=== PATIENT | female | born 2005 | race Hispanic/Latino ===

== ENCOUNTER 2023-01-24 05:05 | Inpatient (IN) | payer OTHER, SELFPAY ==
[2023-01-24] VITALS (143 sets, daily range): BP systolic 62–150; BP diastolic 27–118; PULSE 59–218; RESP 18; TEMP 36.4–37; O2SAT 91–100
--- NOTE | 2023-01-24 05:28 | LDADM ---
This patient, Elsie Cordoba, was admitted to Labor/Delivery/Recovery 103 on 01/24/23 at 05:05. Plans for labor, pain management and were discussed with patient. Patient/family oriented to hospital policies and general routines including ID bracelet, bed and alarms, visiting hours, pain management, procedures, bathroom and other care routines, personal items, smoking policy, room service/diet and guest tray routines, security routines, and visiting hours. Patient/Family are encouraged to report perceived risks to care and to ask questions if they do not understand what they are told or what they should do. See OBIX for further documentation.
[2023-01-24] MEDS: LACTATED RINGERS 500 ML 999 ML IV CONT (05:37)
[2023-01-24 05:44] LABS: Basophils Percent Auto 0.3 % (0.2-1.2); Eosinophils Absolute Auto 0.2 K/mm3 (0-0.3); Eosinophils Percent Auto 1.9 % (0-4.4); Hemoglobin 8.5 g/dL (12.0-15.0); Immature Granulocyte Absolute 0.17 K/mm3 (0.00-0.031); Immature Granulocyte Percent A 1.7 % (0-0.5); Lymphocytes Absolute Auto 2.82 K/mm3 (0.9-3.2); Lymphocytes Percent Auto 27.9 % (18.3-44.2); Mean Corpuscular HGB Conc 28.3 g/dl (32-36); Mean Corpuscular Hemoglobin 20.7 pg (26-34); Mean Platelet Volume 10.5 fl (7.4-10.4); Monocytes Absolute Auto 0.5 K/mm3 (0.1-0.6); Monocytes Percent Auto 4.4 % (2.6-8.5); Neutrophils Absolute Auto 6.5 K/mm3 (1.3-6.7); Neutrophils Percent Auto 63.8 % (45.5-73.1); Nucleated Red Blood Cells Absolute Auto 0.1 K/mm3 (0.0-0.012); Nucleated Red Blood Cells Perc 0.7 % (0.0-0.2); Platelet Count Result 390 k/mm3 (150-375); Red Blood Count 4.11 M/mm3 (4.2-5.4); Red Cell Distribution Width 21.5 % (11.5-14.5); White Blood Count 10.1 K/mm3 (4.5-10.0)
[2023-01-24] MEDS: OXYTOCIN 30 UNITS/NS 500 ML 30 UNITS/500 ML BAG IV CONT (06:18)
[2023-01-24 06:25] LABS: Hypochromasia 3+ (NORMAL); Platelet Estimate Adequate (Adequate); Polychromasia 1+ (NORMAL)
[2023-01-24 06:26] LABS: Anisocytosis 2+ (NORMAL); Microcytosis 1+ (NORMAL); Schistocytes None Seen (NORMAL)
[2023-01-24 06:32] LABS: HIV 1/2 Ab P24 Ag Result Negative (Negative)
--- NOTE | 2023-01-24 07:10 | WPDANESEPP ---
Anes - Eval Pre Procedure Procedure: labor epidural Date/Time: 01/24/23 07:10 Surgeon: scar Preop Diagnosis: pain during labor Pre Op Diagnosis: IOL Patient Data Age: 17 Gender: F Height: Weight: Last Vital Signs Temp 36.4 C 01/24/23 06:15 Pulse 93 01/24/23 06:45 BP 109/75 01/24/23 06:45 O2 Del Method Room Air 01/24/23 05:27 Allergies Allergy/AdvReac Type Severity Reaction Status Date / Time No Known Allergies Allergy Verified 01/09/23 15:56 Home Medications Medication Instructions Recorded Confirmed Type prenat.vits,gary,[id number] 1 tablet PO DAILY 01/09/23 01/09/23 History Laboratory Tests 01/24/23 01/24/23 01/24/23 05:16 05:16 05:16 WBC 10.1 K/mm3 H K/mm3 (4.5-10.0) RBC 4.11 M/mm3 L M/mm3 (4.2-5.4) Hgb 8.5 g/dL L g/dL (12.0-15.0) Hct 30.0 % L % (37.0-47.0) MCV 73.0 fl L fl (80-100) MCH 20.7 pg L pg (26-34) MCHC 28.3 g/dl L g/dl (32-36) RDW 21.5 % H % (11.5-14.5) Plt Count 390 k/mm3 H k/mm3 (150-375) MPV 10.5 fl H fl (7.4-10.4) Immature Gran % (Auto) 1.7 % H % (0-0.5) Neut % (Auto) 63.8 % % (45.5-73.1) Lymph % (Auto) 27.9 % % (18.3-44.2) [place] % (Auto) 4.4 % % (2.6-8.5) Eos % (Auto) 1.9 % % (0-4.4) Baso % (Auto) 0.3 % % (0.2-1.2) Lymph # (Auto) 2.82 K/mm3 K/mm3 (0.9-3.2) [place] # (Auto) 0.5 K/mm3 K/mm3 (0.1-0.6) Eos # (Auto) 0.2 K/mm3 K/mm3 (0-0.3) Baso # (Auto) 0.0 K/mm3 K/mm3 (0.0-0.1) Abs Immat Gran (auto) 0.17 K/mm3 H K/mm3 (0.00-0.031) Absolute Neuts (auto) 6.5 K/mm3 K/mm3 (1.3-6.7) Absolute Nucleated RBC 0.1 K/mm3 H K/mm3 (0.0-0.012) Nucleated RBC % 0.7 % H % (0.0-0.2) Platelet Estimate Adequate (Adequate) Polychromasia 1+ (NORMAL) Hypochromasia 3+ (NORMAL) Anisocytosis 2+ (NORMAL) Microcytosis 1+ (NORMAL) Schistocytes None seen (NORMAL) RPR Pending HIV 1&2 Ab/P24 Ag 4thGn Negative (Negative) Patient hx anesthesia problems: none Family hx anesthesia problems: none Results Review: All pre-operative results and documents have been reviewed as part of the pre-operative evaluation. [facility] Past Medical History Medical History (Updated 01/24/23 @ 07:11 by [employer] [place] CRNA) IUP (intrauterine ), incidental Family History Family History (Updated 01/09/23 @ 15:58 by Luz Swann RN) Mother Diabetes mellitus Grandparent Diabetes mellitus Social History Social History Smoking status: Never smoker Substance use: never Lack of Transportation: No Lack of Food: Never True Current Housing: I Have Housing Concerned About Future Housing: No Difficulty Paying Gas/Electric Bills: No Difficulty Paying for Meds: No Currently Unemployed: No Education: High School Diploma/GED Difficulty w/ Childcare or Family Care: No Spiritual care concerns: No Exam Day of Procedure 01/24/23 07:10
--- NOTE | 2023-01-24 07:29 | PM.IMHP ---
H&P: HPI History of Present Illness Date/Time: 01/24/23 07:29 Chief Complaint: induction of labor Narrative: Nydia is a 17yo at 39.0 for elective IOL. is complicated by short interval (her daughter was born 01/14/22), anemia, COVID during . She is gbs neg. Review of Systems Review of Systems: All systems reviewed & are unremarkable except as noted in HPI and below PMFSH Past Medical History Medical History (Updated 01/24/23 @ 07:31 by Fern Pierce MD) IUP (intrauterine ), incidental Family History Family History (Updated 01/09/23 @ 15:58 by Luz Swann RN) Mother Diabetes mellitus Grandparent Diabetes mellitus Social History Social History Smoking status: Never smoker Substance use: never Lack of Transportation: No Lack of Food: Never True Current Housing: I Have Housing Concerned About Future Housing: No Difficulty Paying Gas/Electric Bills: No Difficulty Paying for Meds: No Currently Unemployed: No Education: High School Diploma/GED Difficulty w/ Childcare or Family Care: No Spiritual care concerns: No Meds Home Medications and Allergies Home Medications Medication Instructions Recorded Confirmed Type prenat.vits,gary,[id number] 1 tablet PO DAILY 01/09/23 01/09/23 History Allergies Allergy/AdvReac Type Severity Reaction Status Date / Time No Known Allergies Allergy Verified 01/09/23 15:56 Vital Signs Vital Signs - 24 hr 01/24/23 05:26 01/24/23 05:30 01/24/23 05:34 Temperature Pulse Rate 140 H 113 H 93 Blood Pressure 88/45 L 86/37 L 93/69 L Oxygen Delivery 01/24/23 05:45 01/24/23 06:00 01/24/23 06:15 Temperature 97.6 F Pulse Rate 91 95 93 Blood Pressure 108/68 108/72 114/64 Oxygen Delivery 01/24/23 06:30 01/24/23 06:45 01/24/23 05:27 Temperature Pulse Rate 86 93 Blood Pressure 118/68 109/75 Oxygen Delivery Room Air Exam Const: General: no acute distress Resp: Effort & Inspection: normal respiratory effort Auscultation: clear to auscultation bilaterally Cardio: Rate: regular rate Rhythm: regular rhythm GI: GI Palp: Yes Soft to palpation Extrem: General: normal to inspection H&P: Results Labs Labs: Short CBC 01/24/23 Range/Units 05:16 WBC 10.1 H (4.5-10.0) K/mm3 Hgb 8.5 L (12.0-15.0) g/dL Hct 30.0 L (37.0-47.0) % Plt Count 390 H (150-375) k/mm3 Assessment and Plan Assessment and plan (1) Elective induction of labor planned: Status: Acute (2) Anemia complicating : Code(s): O99.019 - Anemia complicating , unspecified trimester Status: Acute Assessment and Plan: IOL pitocin GBS neg AROM clear 4.5/50/-3 FHT category 1 anticipate hgb 8.5. plan IV iron pp if transfusion not needed.
[2023-01-24] MEDS: LACTATED RINGERS 1,000 ML 999 ML IV CONT ×2 (07:50→10:02)
[2023-01-24] MEDS: fentaNYL CITRATE INJ (*CRX) 100 MCG/2 ML VIAL IV PUSH (08:34)
[2023-01-24 13:50] LABS: Rapid Plasma Reagin Non-Reactive (NonReactive)
--- NOTE | 2023-01-24 15:14 | PM.OBPRVD ---
OB - Delivery Note Procedure Delivery date: 01/24/23 Procedure: Events: Elective Induction of Labor Induction method: AROM and Per Pitocin Protocol Delivery monitor: External FHT and Internal Uterine Route of delivery: Laceration Description: None Quantitative Blood Loss (ml): 150 Anesthesia type: Epidural Disposition: Floor Narrative: With adequate expulsive efforts by the mother, the baby's head was delivered OA. The baby's anterior shoulder was delivered under the pubic symphysis without difficulty. The posterior shoulder and the rest of the baby delivered without difficulty. The was placed on the mothers chest and suctioned and stimulated. The cord was clamped and cut after 30 seconds. Mother and baby both stable. Baby Date of : 01/24/23 Time of : 14:55 Weeks of gestation at delivery: 39 gender: Male Weight (pounds): 8 Weight (ounces): 5 presentation: vertex Placenta delivery description: Spontaneous Cord Vessel Description: 3 Vessels and Delayed Cord Clamping score one minute: 8 score five minutes: 9
[2023-01-24] MEDS: OXYTOCIN 30 UNITS/NS 500 ML 30 UNITS/500 ML BAG 125 UNITS IV CONT (15:45)
--- NOTE | 2023-01-24 19:07 | OBPPTRN ---
1725 Patient transferred to post room #291 via W/C. Support person present. Oriented to unit, room, information board, rooming in, admission packet and security measures. Patient verbalizes understanding.
[2023-01-25 00:10] VITALS: BP 118/60; PULSE 95; RESP 16; TEMP 37.3; O2SAT 98
[2023-01-25 03:52] VITALS: BP 113/69; PULSE 83; RESP 16; TEMP 37.2; O2SAT 100
[2023-01-25] MEDS: IBUPROFEN 600 MG TABLET PO ×2 (03:59→17:22)
[2023-01-25 04:29] LABS: Hematocrit 26.4 % (37.0-47.0); Hemoglobin 7.5 g/dL (12.0-15.0)
[2023-01-25] MEDS: ACETAMINOPHEN 325 MG TABLET 650 MG PO (08:25)
[2023-01-25] MEDS: MULTIVIT/MIN/PREN/FOL AC/IRON TABLET 1 TAB PO (08:26)
[2023-01-25] MEDS: POLYSACCHARIDE IRON COMPLEX 150 MG CAPSULE PO ×2 (08:26→17:22)
[2023-01-25] MEDS: DOCUSATE SODIUM 100 MG CAPSULE PO ×2 (08:26→17:22)
[2023-01-25] MEDS: LANOLIN (LANSINOH) 7.5 GM CREAM 1 APPLIC TOPICAL (08:28)
[2023-01-25 08:30] VITALS: BP 116/68; PULSE 90; RESP 16; TEMP 36.6; O2SAT 100
--- NOTE | 2023-01-25 08:53 | PM.OBPNVD ---
OB - PN: Subj Subjective Date/time seen: 01/25/23 08:53 Patient comments: no complaints baby status: doing well [place] feeding status: breast and bottle feeding Narrative: Baby not eating well either breast nor bottle. OB - PN: Obj Data Labs 01/25/23 04:07 Labs: Laboratory Results - last 24 hr 01/24/23 01/25/23 05:16 04:07 Hgb 7.5 L Hct 26.4 L RPR Non-reactive OB - PN A/P Assessment and Plan (1) Anemia complicating : Code(s): O99.019 - Anemia complicating , unspecified trimester Status: Acute (2) , delivered: Code(s): O80 - Encounter for full-term uncomplicated delivery Status: Acute Plan day: 1 Plan: routine care Comments: Pt asked about going home, but if baby not eating well, I recommended they stay until tomorrow. IV iron today DC home tomorrow. Time Spent With Patient Time: Total time spent is greater than 50% in coordination of care (as documented) at patient's floor/unit and/or counseling patient: Time with patient: less than 15 minutes Exam Narrative: NAD abdomen soft, nontender, fundus firm below the umbilicus Extremities nontender, 1+ edema
[2023-01-25 13:15] VITALS: BP 101/53; PULSE 84; RESP 18; TEMP 36.7; O2SAT 98
--- NOTE | 2023-01-25 13:55 | WPDANLDPN2 ---
Anes-Prog Note L&D Date/Time: 01/25/23 13:55 Comfortable throughout: labor and delivery (pt states felt intense rectal pressure at delivery. denied sharp pain.) Neuraxial method: epidural Epidural/Spinal procedure site: clean & non-tender Neuro status: Neuro function grossly intact. Cardiovascular status: normal Respiratory status: normal Airway patency: baseline Mental status: baseline Post-Op hydration status: normal Vital Signs: Last Vital Signs Temp 97.9 F 01/25/23 08:30 Pulse 90 01/25/23 08:30 Resp 16 01/25/23 08:30 BP 116/68 01/25/23 08:30 Pulse Ox 100 01/25/23 08:30 O2 Del Method Room Air 01/25/23 09:30 Pain score (VAS): 0 I/O: Intake & Output 01/24/23 01/25/23 01/25/23 23:59 07:59 15:59 Intake Total 240 480 Balance 240 480 Post-procedural complaints: none Patient feedback: Patient satisfied with anesthetic care.
[2023-01-25 20:57] VITALS: BP 106/64; PULSE 103; RESP 18; TEMP 36.9; O2SAT 99
[2023-01-26] MEDS: POLYSACCHARIDE IRON COMPLEX 150 MG CAPSULE PO (08:01)
[2023-01-26] MEDS: MULTIVIT/MIN/PREN/FOL AC/IRON TABLET 1 TAB PO (08:01)
[2023-01-26] MEDS: DOCUSATE SODIUM 100 MG CAPSULE PO (08:02)
[2023-01-26] MEDS: ACETAMINOPHEN 325 MG TABLET 650 MG PO (08:03)
[2023-01-26 08:07] VITALS: BP 110/57; PULSE 76; RESP 16; TEMP 36.6; O2SAT 100
--- NOTE | 2023-01-26 10:05 | PM.OBPNVD ---
OB - PN: Subj Subjective Date/time seen: 01/26/23 10:05 Patient comments: no complaints and pain well controlled baby status: doing well and bottle feeding well OB - PN: Obj Data Labs 01/25/23 04:07 OB - PN A/P Plan day: 2 Plan: routine care and discharge home Time Spent With Patient Time: Total time spent is greater than 50% in coordination of care (as documented) at patient's floor/unit and/or counseling patient: Time with patient: less than 15 minutes Exam Narrative: NAD abdomen soft, nontender, fundus firm below the umbilicus Extremities nontender, 1+ edema
--- NOTE | 2023-01-26 10:06 | PM.OBDSVD ---
DS: Admitting Diagnosis Discharge Date 01/26/23 Admitting Diagnosis term IUP DS: Discharge Diagnosis Discharge Diagnosis (1) , delivered: Code(s): O80 - Encounter for full-term uncomplicated delivery Status: Acute (2) Anemia complicating : Code(s): O99.019 - Anemia complicating , unspecified trimester Status: Acute OB - DS: Summary Hospital Course Hospital Course: Nydia was admitted for elective induction of labor. She proceeded to have an uncomplicated vaginal delivery and course. SHe did receive IV iron for anemia. She was DCed home on PPD 2. OB Procedures : Ultrasound OB Procedures Intrapartum: Spontaneous Vag Delivery OB Procedures: : None Peripartum Data Infant Delivery Method: Natural Vaginal complications: none Status at Discharge Functional status at discharge: independent ambulation Time Spent with Patient Time attestation: Total time spent providing and/or coordinating discharge services: Exam Narrative: NAD abdomen soft, appropriately tender Ext non tender, 1+ edema Discharge Plan Discharge Attending physician on discharge: Fern Pierce Discharging Clinician: Fern Pierce Anticipated Discharge Date/Time: 01/26/23 11:00 Patient Disposition: Home, Self-Care Activity: pelvic rest Diet: regular Discharge Instructions: Education: Mom and Baby Guide Given to: Mother Follow-Up: Call your delivering provider's office for an appointment to be seen in: 4 Weeks Mom and baby should come to the [facility] for the follow-up appointment. Appointment Date/Time: January 27, 2023 at 3:30 pm What to expect at your follow-up visit: Blood Pressure Check Physical Assessment Call [phone] if you are unable to keep your appointment time. BREAST CARE: * Wear a snug supportive bra. * For engorgement discomfort: Breast Feeding: * Apply warm moist washcloths * Express milk as needed to relieve engorgement * Wear loose clothing Bottle Feeding: * May apply ice packs * For sore nipples: * Identify correct latch-on * Apply warm moist washcloths before and after nursing * Air dry nipples after nursing * May apply Lansinoh cream to nipples EPISIOTOMY/PERINEAL CARE: * Until bleeding stops, use your min bottle after urinating * Change your pad frequently throughout the day * You may take sitz baths several times a day (fill your bathtub with warm water and soak for 20 minutes.) Do NOT bathe in the water * No tub baths until seen by your physician - You may shower ACTIVITY: * Rest as much as possible. * Do not exercise or lift anything heavier than your baby (such as laundry or other children.) * Avoid stairs or driving as much as possible. * Do not put anything into the vagina. No douching, tampons, or sexual activity until seen by physician. NOTIFY PHYSICIAN IF YOU HAVE ANY QUESTIONS OR IF ANY OF THE FOLLOWING SYMPTOMS OCCUR: * If your episiotomy or incision becomes red, swollen, or more painful than what you have experienced in the hospital. * If your vaginal bleeding becomes foul smelling. * If your vaginal bleeding becomes more heavy than a period or if your bleeding changes from pink to bright red. However, you may pass an occasional walnut-sized clot once or twice for the first week . * If you experience a sharp, shooting pain in you calves. * If you discover a hard, reddened area on your breast or if you experience flu-like symptoms. DIET: * Eat regular, well-balanced meals. * Drink plenty of fluids daily. If , drink to thirst. Patient Instructions: Antibiotic Form Stand Alone Forms: General Discharge Information Follow-up/Referrals: Fern Pierce MD [Physician] - 4 Weeks Discharge Medications: Continued prenat.vits,gary,[id number] Tablet 1 tablet PO DAILY Date o
[2023-01-26] MEDS: IBUPROFEN 600 MG TABLET PO (11:06)
[2023-01-26] MEDS: TETANUS,DIPHTHERIA,AC PERTUSSIS ADULT (0.5 ML) BOOSTRIX IM (11:54)
[2023-01-27 16:06] VITALS: BP 117/64; PULSE 94; RESP 18; TEMP 36.9; O2SAT 100
== END 2023-01-26 12:05 | disposition home or self-care (01) | DRG 560 ==
LOC: ANHLDR 05:11 → ANHOB2 17:38
PROVIDERS: Admitting Provider Obstetrics & Gynecology; Visit Provider Obstetrics & Gynecology
DX: O99.02 Anemia complicating childbirth (principal); Z23 Encounter for immunization; Z3A.39 39 weeks gestation of pregnancy; Z37.0 Single live birth; Z86.16 Personal history of COVID-19
CPT/HCPCS: 36415; 85014; 85018; 85025; 86592; 86703; 86850; 86900; 86901; 90471; 90686; 90715; A9270; G0008; G0432; J1756; J2590; J2795; J3010; J7120

== ENCOUNTER 2025-04-29 22:13 | Emergency (ER) | payer SELFPAY ==
--- NOTE | ~2025-04-29 | US_ITS ---
EXAMINATION: US OB <= 14 weeks fetus DATE: 04/30/2025 00:37 INDICATION: Approximately 8 week fetus. Gestational bleeding. Pain. TECHNIQUE: Real-time transabdominal obstetric ultrasound. FINDINGS: No prior studies for comparison. The uterus measures 10.5 x 5.6 x 6 cm. The endometrium is thickened and somewhat heterogeneous measur ing 1.8 cm. No intrauterine gestational sac or pole identified. No abnormal vascularity of the endometrium. Ovaries within normal limits. Right ovary measures 3.1 x 2.3 x 1.3 cm. Left ovary measur es 3.6 x 1.9 x 2.5 cm. IMPRESSION: 1. No evidence for intrauterine or gestational sac. Thickened heterogeneous endometrium buddy suring 1.8 cm. If there is a positive test, considered failed , very early intraut erine and ectopic .Recommend with follow-up serial quantitative beta-hCG levels an d ultrasound as clinically indicated. Reviewed, dictated and finalized at location A. IMPRESSION: 1. No evidence for intrauterine or gestational sac. Thickened heterog eneous endometrium measuring 1.8 cm. If there is a positive test, con sidered failed , very early intrauterine and ectopic pregnan cy.Recommend with follow-up serial quantitative beta-hCG levels and ultrasound as clinically indicated.
--- OUTSIDE RECORDS SUMMARY | 2025-04-29 22:15 | XMS_ITS | Data Portability ---
Author Organization [facility] HOLLANDConstantin Address [address] [facility] [place] [place] [address] Assessment No assessment recorded. Plan of Treatment Reminders Order Date Submit Date Provider Last Modified By Organization Details Last Modified Time Details Appointments None recorded. Lab test, urine 2020 021 sarita reyes In-Office Order, Internal Use Only DO Not Attach Compendium DO Not Attach Compendium, Do Not Delete/merge, [id number] 16:36:15 type + screen, serum 2020 021 [email or web address] [address] [place], [address], 13:25:07 CBC w/ auto diff 2020 [facility] [address] [place], [address], 19:08:54 HIV (1+2) Ab screen, serum 2020 021 [email or web address] [address] [place], [address], 13:13:35 RPR (rapid plasma reagin), [facility] [address] [place], [address], 19:08:58 HBsAg (hepatitis B surface Ag), serum [email or web address] (Lab), [address], [place], [address], 13:13:58 CT + NG + TV, DNA, urine/swab 2020 [facility] (Lab), [address], [place], [address], 19:08:55 drug screen, urine 2020 [facility] (Lab), [address], [place], [address], 19:08:53 cf (cystic fibrosis) profile 2020 [facility] (Lab), [address], [place], [address], 19:08:56 culture, urine 2020 [facility] (Lab), [address], [place], [address], 19:09:01 rubella igg Ab screen, serum [address] (Lab), [address], [place], [address], 13:14:20 varicella-z santos igg Ab screen, serum [address] (Lab), [address], [place], [address], 13:14:42 hemoglobino candice profile, blood [address] (Lab), [address], [place], [address], 12:28:47 aneuploidy risk and X & Y analysis, chromosome specific circulating cell free (CCF) DNA, maternal serum 2020 021 [email or web address] 1 [facility], [address] [facility], [address], [place], [address], 13:15:10 Referral None recorded. Procedures None recorded. Surgeries None recorded. Imaging US, obstetric, 2nd or 3rd trimester, additional gestation - Dating US. FDLMP = 04/11/21 -> EDC of 01/16/2022. 15w5d today 2020 021 [email or web address] 1 [facility]), [address] [facility], [place], [address], 13:00:15 Medication Orders None recorded. Patient TargetsNo targets recorded. Patient InstructionsNo instructions recorded. Reason for Referral None Reported. Results Created Date Observation Date Name Description Value Unit Range Abnormal Flag Note LastModifiedBy Organization Detail LastModifiedTime 07/30/2007/30/2021 pregn rosario test, urine HCG positi ve Not Available In-Office Order Internal Use Only DO Not Attach Compendium DO Not Attach Compendium, Do Not Delete/merge, [id number] 07/30/2021 15:56:57 07/30/2008/01/2021 NO TEST INDIC ATED . Commen t A urine was recei walter with no test indic ated Not Available [facility] ([facility]) [address] [facility], [place], [address], 08/01/2021 11:11:53 07/30/2008/01/2021 NO TEST INDIC ATED dear doctor, Commen t The requi sitio n we recei walter for the above patie nt has no test indic ated on the reque st form for one or more of the speci mens submi tted. [place] at[place] s requi res a writt en and kaylee d reque st be forwa rded to the testi ng labor atory follo wing the verba l order of a labor atory test. Date: ___ ICD- Diagn osis Code( s):__ _ Physi william or Autho rized Desig nee Signa ture: Your signa ture confi drake your order of the test( s) liste d Requi red test name( s):__ _ Requi red test numbe r(s): _ Shelby buckley de reque sted infor matbakari n and fax to [phone] to exped ite testi ng. Not Available [facility] ([facility]) [address] [facility], [place], [address], 08/01/2021 11:11:53 07/30/20 21 08/01/2021 VERBA L ORDER see below: Commen t: Shelby buckley de reque sted infor matio n and fax to [phone]. [place] Reg[place] ation s requi res a writt en and kaylee d reque st be forwa rded to a labor atory follo wing a verba l order of a labor atory test. Shelby dejesus t us to meet this requi remen t and to compl ete our recor ds. Date: ICD- Diagn osis Code( s):__ _ Physi william or Autho rized Desig nee:_ _ Pleas e Print Physi william or Autho rized Desig nee Signa ture: Your Signa ture Confi drake Your Order Of The Test( s) Liste d Not Available [facility] ([facility]) [address] [place], [address], 08/15/2021 11:12:00 07/30/20 21 08/01/2021 VERBA L ORDER additional test(s) requested Commen t: Test( s) added per Marco martinez at [facility] nt 08-01 Logge d by Susana Wilkins r Test# [id number] Urina lysis , Routi ne Diagn osis Codes Provi ded Z34.9 0 Not Available [facility] ([facility]) [address] [place], [address], 08/15/2021 11:12:00 07/30/2008/15/2021 VERBA L ORDER verbal order Commen t THIS IS THE FINAL NOTIC E REQUE STING THIS INFOR MATIO N; IF WE DO NOT RECEI VE THIS INFOR MATIO N WITHI N SEVEN DAYS, THE TESTS WILL BE BILLE D TO YOUR ACCOU NT. Not Available [facility] ([facility]) [address] [place], [address], 08/15/2021 11:12:00 07/30/20 21 07/31/2021 DRUG PROFI LE, UR, 9 DRUGS amphetamines , urine Negati ve NG/mL cutoff =1000 Amphe tamin e test inclu darren Amphe tamin e and Metha mphet amine . Not Available [facility] ([facility]) [address] [place], [address], 08/02/2021 19:08:53 07/30/20 21 07/31/2021 DRUG PROFI LE, UR, 9 DRUGS barbiturate Negati ve NG/mL cutoff =300 Not Available [facility] ([facility]) [address] [place], [address], 08/02/2021 19:08:53 07/30/20 21 07/31/2021 DRUG PROFI LE, UR, 9 DRUGS benzodiazepi venkata Negati ve NG/mL cutoff =300 Not Available [facility] ([facility]) [address] [place], [address], 08/02/2021 19:08:53 07/30/20 21 07/31/2021 DRUG PROFI LE, UR, 9 DRUGS cannabinoid Negati ve NG/mL cutoff =50 Not Available [facility] ([facility]) [address] [place], [address], 08/02/2021 19:08:53 07/30/20 21 07/31/2021 DRUG PROFI LE, UR, 9 DRUGS cocaine (metab.) Negati ve NG/mL cutoff =300 Not Available [facility] ([facility]) [address] [place], [address], 08/02/2021 19:08:53 07/30/20 21 07/31/2021 DRUG PROFI LE, UR, 9 DRUGS opiates Negati ve NG/mL cutoff =300 Opiat e test inclu darren Codei ne and Morph ine only. Not Available [facility] ([facility]) [address] [place], [address], 08/02/2021 19:08:53 07/30/20 21 07/31/2021 DRUG PROFI LE, UR, 9 DRUGS phencyclidin e Negati ve NG/mL cutoff =25 Not Available [facility] ([facility]) [address] [place], [address], 08/02/2021 19:08:53 07/30/20 21 07/31/2021 DRUG PROFI LE, UR, 9 DRUGS methadone screen, urine Negati ve NG/mL cutoff =300 Not Available [facility] ([facility]) [address] [place], [address], 08/02/2021 19:08:53 07/30/20 21 07/31/2021 DRUG PROFI LE, UR, 9 DRUGS propoxyphene , urine Negati ve NG/mL cutoff =300 Not Available [facility] ([facility]) [address] [place], [address], 08/02/2021 19:08:53 07/30/20 21 07/31/2021 CBC WITH DIFFE RENTI AL/PL ATELE T WBC 9.6 x10e3 /uL 3.4-10 .8 Not Available [facility] ([facility]) [address] [place], [address], 08/02/2021 19:08:54 07/30/20 21 07/31/2021 CBC WITH DIFFE RENTI AL/PL ATELE T RBC 4.59 x10e6 /uL 3.77-5 .28 Not Available [facility] ([facility]) [address] [place], [address], 08/02/2021 19:08:54 07/30/20 21 07/31/2021 CBC WITH DIFFE RENTI AL/PL ATELE T hemoglobin 13.6 g/dL 11.1-1 5.9 Not Available [facility] ([facility]) [address] [place], [address], 08/02/2021 19:08:54 07/30/20 21 07/31/2021 CBC WITH DIFFE RENTI AL/PL ATELE T hematocrit 39.4 % 34.0-4 6.6 Not Available [facility] ([facility]) [address] [facility], [place], [address], 08/02/2021 19:08:54 07/30/20 21 07/31/2021 CBC WITH DIFFE RENTI AL/PL ATELE T MCV 86 fL 79-97 Not Available [facility] ([facility]) [address] [facility], [place], [address], 08/02/2021 19:08:54 07/30/20 21 07/31/2021 CBC WITH DIFFE RENTI AL/PL ATELE T MCH 29.6 pg 26.6-3 3.0 Not Available [facility] ([facility]) [address] [place], [address], 08/02/2021 19:08:54 07/30/20 21 07/31/2021 CBC WITH DIFFE RENTI AL/PL ATELE T MCHC 34.5 g/dL 31.5-3 5.7 Not Available [facility] ([facility]) [address] [place], [address], 08/02/2021 19:08:54 07/30/20 21 07/31/2021 CBC WITH DIFFE RENTI AL/PL ATELE T RDW 14.5 % 11.7-1 5.4 Not Available [facility] ([facility]) [address] [place], [address], 08/02/2021 19:08:54 07/30/20 21 07/31/2021 CBC WITH DIFFE RENTI AL/PL ATELE T platelets 329 x10e3 /uL 150-45 0 Not Available [facility] ([facility]) [address] [facility], [place], [address], 08/02/2021 19:08:54 07/30/20 21 07/31/2021 CBC WITH DIFFE RENTI AL/PL ATELE T neutrophils 77 % not estab. Not Available [facility] ([facility]) [address] [facility], [place], [address], 08/02/2021 19:08:54 07/30/20 21 07/31/2021 CBC WITH DIFFE RENTI AL/PL ATELE T lymphs 15 % not estab. Not Available [facility] ([facility]) [address] [facility], [place], [address], 08/02/2021 19:08:54 07/30/20 21 07/31/2021 CBC WITH DIFFE RENTI AL/PL ATELE T monocytes 4 % not estab. Not Available [facility] ([facility]) [address] [facility], [place], [address], 08/02/2021 19:08:54 07/30/20 21 07/31/2021 CBC WITH DIFFE RENTI AL/PL ATELE T eos 3 % not estab. Not Available [facility] ([facility]) [address] [facility], [place], [address], 08/02/2021 19:08:54 07/30/20 21 07/31/2021 CBC WITH DIFFE RENTI AL/PL ATELE T basos 0 % not estab. Not Available [facility] ([facility]) [address] [facility], [place], [address], 08/02/2021 19:08:54 07/30/20 21 07/31/2021 CBC WITH DIFFE RENTI AL/PL ATELE T immature cells INTERNAL AUDIT MANAGER Not Available [facility] ([facility]) [address] [facility], [place], [address], 08/02/2021 19:08:54 07/30/20 21 07/31/2021 CBC WITH DIFFE RENTI AL/PL ATELE T neutrophils (absolute) 7.4 x10e3 /uL 1.4-7. 0 above high normal Not Available [facility] ([facility]) [address] [facility], [place], [address], 08/02/2021 19:08:54 07/30/20 21 07/31/2021 CBC WITH DIFFE RENTI AL/PL ATELE T lymphs (absolute) 1.4 x10e3 /uL 0.7-3. 1 Not Available [facility] ([facility]) [address] [place], [address], 08/02/2021 19:08:54 07/30/20 21 07/31/2021 CBC WITH DIFFE RENTI AL/PL ATELE T monocytes(ab solute) 0.3 x10e3 /uL 0.1-0. 9 Not Available [facility] ([facility]) [address] [place], [address], 08/02/2021 19:08:54 07/30/20 21 07/31/2021 CBC WITH DIFFE RENTI AL/PL ATELE T eos (absolute) 0.3 x10e3 /uL 0.0-0. 4 Not Available [facility] ([facility]) [address] [place], [address], 08/02/2021 19:08:54 07/30/20 21 07/31/2021 CBC WITH DIFFE RENTI AL/PL ATELE T baso (absolute) 0.0 x10e3 /uL 0.0-0. 2 Not Available [facility] ([facility]) [address] [place], [address], 08/02/2021 19:08:54 07/30/20 21 07/31/2021 CBC WITH DIFFE RENTI AL/PL ATELE T immature granulocytes 1 % not estab. Not Available [facility] ([facility]) [address] [facility], [place], [address], 08/02/2021 19:08:54 07/30/20 21 07/31/2021 CBC WITH DIFFE RENTI AL/PL ATELE T immature grans (abs) 0.1 x10e3 /uL 0.0-0. 1 Not Available [facility] ([facility]) [address] [facility], [place], [address], 08/02/2021 19:08:54 07/30/20 21 07/31/2021 CBC WITH DIFFE RENTI AL/PL ATELE T NRBC INTERNAL AUDIT MANAGER Not Available [facility] ([facility]) [address] [facility], [place], [address], 08/02/2021 19:08:54 07/30/20 21 07/31/2021 CBC WITH DIFFE RENTI AL/PL ATELE T hematology comments: INTERNAL AUDIT MANAGER Not Available [facility] ([facility]) [address] [facility], [place], [address], 08/02/2021 19:08:54 07/30/20 21 07/31/2021 HGB FRACT IONAT ION CASCA DE HGB F 0.0 % 0.0-2. 0 Not Available [facility] ([facility]) [address] [facility], [place], [address], 08/02/2021 19:08:54 07/30/20 21 07/31/2021 HGB FRACT IONAT ION CASCA DE HGB A 97.4 % 96.4-9 8.8 Not Available [facility] ([facility]) [address] [facility], [place], [address], 08/02/2021 19:08:54 07/30/20 21 07/31/2021 HGB FRACT IONAT ION CASCA DE HGB A2 2.6 % 1.8-3. 2 Not Available [facility] ([facility]) [address] [facility], [place], [address], 08/02/2021 19:08:54 07/30/20 21 07/31/2021 HGB FRACT IONAT ION CASCA DE HGB S 0.0 % 0.0 Not Available [facility] ([facility]) [address] [place], [address], 08/02/2021 19:08:54 07/30/20 21 07/31/2021 HGB FRACT IONAT ION CASCA DE interpretati on: Commen t Danuta l hemog lobin prese nt; no hemog lobin varia nt or thala ssemi a obser walter. Not Available [facility] ([facility]) [address] [place], [address], 08/02/2021 19:08:54 07/30/20 21 08/01/2021 CT, NG, TRICH VAG BY ETIENNE chlamydia by ETIENNE Negati ve negati ve Not Available [facility] ([facility]) [address] [place], [address], 08/02/2021 19:08:55 07/30/20 21 08/01/2021 CT, NG, TRICH VAG BY ETIENNE gonococcus by ETIENNE Negati ve negati ve Not Available [facility] ([facility]) [address] [place], [address], 08/02/2021 19:08:55 07/30/20 21 08/01/2021 CT, NG, TRICH VAG BY ETIENNE trich vag by ETIENNE Negati ve negati ve Not Available [facility] ([facility]) [address] [place], [address], 08/02/2021 19:08:55 07/30/20 21 07/30/2021 CYSTI C FIBRO SIS PROFI LE comment: Commen t The assay provi darren infor matio n inten ded to be used for zeenat er scree susan in adult s of repro ducti ve age, as an aid in newbo rn scree susan, and as a confi rmato ry test for anoth er medic ally estab lishe d diagn osis in [facility] rns and child leonard. The test is not indic ated for use in diagn ostic testi ng, pre-i mplan tatio n scree susan, or for any stand -regino e diagn ostic purpo ses witho ut confi rmati on by anoth er medic ally estab lishe d diagn ostic produ ct or proce dure. Not Available [facility] ([facility]) [address] [facility], [place], [address], 08/02/2021 19:08:56 07/30/20 21 08/02/2021 CYSTI C FIBRO SIS PROFI LE CF, screen Commen t: RESUL TS: Negat ted for 32 mutat ions abigail zed INTER PRETA TION: This indiv idual is negat ted for the mutat ions abigail zed. This negat ted resul t may need furth er inter preta tion depen ding on the clini gary indic ation . This resul t reduc es but does not elimi vito the risk to be a CF zeenat er. COMME NTS: The detec tion rate varie s with [place] and is liste d below . The prese nce of an undet ected mutat ion in the CF gene canno t be ruled out. In the absen ce of famil y histo ry, the remai susan risk that a perso n with a negat ted resul t could have at least one CF mutat ion is liste d in the table . If there is a famil y histo ry of CF, these risk figur es do not apply . As detai led infor matio n regar ding this indiv idual 's famil y histo ry would permi t a more accur ate asses sment of this indiv idual 's risk to be a zeenat er of cysti c fibro sis, pleas e conta ct [facility] Servi madiha at for a maty ed repor t. Mutat ion Detec tion Detec tion rates are based on mutat ion Rates among Ethni c frequ encie s in patie nts affec geno with Group s cysti c fibro sis. Among indiv idual s with an atypi gary or mild prese ntati on (e.g. conge nital absen ce of the vas defer ens, pancr eatit is) detec tion rates may vary from those provi ded here: Zeenat er risk reduc tion when no famil y histo ry Detec tion [place] Rate [place]ra nazi 12/26 to 97% Jewis h Cauca fady 12/25 to 90% (non- Hispa lc) Afric an-Am lisa n to 69% Hispa lc to 73% to 55% This inter preta tion is based on the clini gary and famil y relat ionsh ip infor matio n provi ded and the curre nt under stand ing of the molec ular cece ics of this condi tion. MUTAT IONS ABIGAIL ZED: G85E V520F W1282 X 2183A A to G R117H G542X N1303 K 2184d Víctor R334W S549N 394de lTT 2789+ 5G to A R347H S549R 621+1 G to T 3120+ 1G to A R347P G551D 711+1 G to T 3659d elC A455E R553X 1078d elT 3849+ 10kbC to T Delta I507 R560T 1717- 1G to A 3876d Víctor Delta F508 R1162 X 1898+ 1G to A 3905i nsT METHO DS/LI MITAT IONS: DNA is isola geno from the sampl e and teste d for the 32 CF mutat ions on the [employer] ([place]). Regio ns of the CFTR gene are ampli fied enzym atica lly and subje cted to a solut ion-p hase multi plex allel e-spe cific prime r exten pili with subse quent hybri dizat ion to a bead array and fluor escen ce detec tion. Polym orphi sms F508C , I506V and I507V are inclu ded in this panel to rule out false posit ted delta F508 homoz ygote s. Refle x testi ng of 5T is inclu ded in the panel for R117H inter preta tion. False posit ted or negat ted resul ts may occur for reaso ns that inclu de cece ic varia nts, blood trans fusio ns, bone marro w trans plant ation , heaven eous repre senta tion of famil y relat ionsh ips or conta minat ion of a sampl e with mater nal cells . REFER ENCES : 1. Updat es on Zeenat er Scree susan for Cysti c Fibro sis. (2011 ) Am J Ob Gynec ol 117(4 ):102 8-103 1 2. Filiberto n, et al. (2004 ) Cece Med 6:387 -91 3. Flor mohamud, et al. (2002 ) Cece Med 4:379 -391 4. Preco ncept ion and prena bradley zeenat er scree susan for cysti c fibro sis: (2000 )ACOG .[facility] publi catio n Resul ts Relea sed By: Gary fuentes, Ph.D. Techn ical Direc tor Repor t Relea sed By: Gary fuentes, Ph.D. Techn ical Direc tor Not Available [facility] ([facility]) [address] [facility], [place], [address], 08/02/2021 19:08:56 07/30/20 21 08/02/2021 CYSTI C FIBRO SIS PROFI LE pdf . Not Available [facility] ([facility]) [address] [facility], [place], [address], 08/02/2021 19:08:56 07/30/20 21 07/31/2021 ABO GROUP ING AND RHO(D ) TYPIN G ABO grouping A Not Available [facility]) [address] [place], [address], 08/02/2021 19:08:56 07/30/20 21 07/31/2021 ABO GROUP ING AND RHO(D ) TYPIN G Rh factor Positi ve Pleas e note: Prior recor ds for this patie nt's ABO / Rh type are not avail able for addit ional verif icati on. Not Available [facility] ([facility]) [address] [facility], [place], [address], 08/02/2021 19:08:56 07/30/20 21 07/31/2021 RUBEL LA ANTIB ODIES , IGG rubella antibodies, IgG 1.62 index immune >0.99 Non-i mmune <0.90 Equiv ocal 0.90 - 0.99 Immun e >0.99 Not Available [facility] ([facility]) [address] [facility], [place], [address], 08/02/2021 19:08:57 07/30/20 21 07/31/2021 RPR, RFX QN RPR/C ONFIR M TP RPR Non Reacti ve non reacti ve Not Available [facility] ([facility]) [address] [facility], [place], [address], 08/02/2021 19:08:58 07/30/20 21 07/31/2021 HIV AG/AB WITH REFLE X HIV screen 4TH generation wrfx Non Reacti ve non reacti ve Not Available [facility] ([facility]) [address] [facility], [place], [address], 08/02/2021 19:08:59 07/30/20 21 07/31/2021 VARIC RENEE- ZOSTE R V AB, IGG varicella zoster IgG <135 index immune >165 below low normal Negat ted <135 Equiv ocal 135 - 165 Posit ted >165 A posit ted resul t gener ally indic ates expos ure to the patho gen or admin istra tion of speci fic immun oglob ulins , but it is not indic ation of activ e infec tion or stage of disea se. Not Available [facility] ([facility]) [address] [facility], [place], [address], 08/02/2021 19:08:59 07/30/20 21 07/31/2021 HBSAG SCREE N HBsAg screen Negati ve negati ve Not Available [facility] ([facility]) [address] [facility], [place], [address], 08/02/2021 19:09:00 07/30/20 21 08/01/2021 URINE CULTU RE, ROUTI NE urine culture, routine Final report Not Available [facility] ([facility]) [address] [facility], [place], [address], 08/02/2021 19:09:00 07/30/20 21 08/01/2021 URINE CULTU RE, ROUTI NE result 1 Commen t Mixed uroge nital ebenezer 25,00 0-50, 000 colon y formi ng units per mL Not Available [facility] ([facility]) [address] [facility], [place], [address], 08/02/2021 19:09:00 07/30/20 21 08/04/2021 MATER NIT21 PLUS CORE (CHR2 1, 18, 13, SEX gestation Single ton Not Available [facility] (Lab) [address] [place], [address], 08/04/2021 14:10:30 07/30/20 21 08/04/2021 MATER NIT21 PLUS CORE (CHR2 1, 18, 13, SEX fraction 8% Not Available [facility] (Lab) [address] [place], [address], 08/04/2021 14:10:30 07/30/20 21 08/04/2021 MATER NIT21 PLUS CORE (CHR2 1, 18, 13, SEX gestational age > or = 9W: Yes Not Available [facility] (Lab) [address] [place], [address], 08/04/2021 14:10:30 07/30/20 21 08/04/2021 MATER NIT21 PLUS CORE (CHR2 1, 18, 13, SEX test result Negati ve Not Available [facility] (Lab) [address] [place], [address], 08/04/2021 14:10:30 07/30/20 21 08/04/2021 MATER NIT21 PLUS CORE (CHR2 1, 18, 13, SEX quality lab assoc comments [facility] This speci men showe d an expec geno repre senta tion of chrom osome 21, 18 and 13 mater ial. Clini gary corre latio n is donovan hernandez. Not Available [facility] (Lab) [address] [place], [address], 08/04/2021 14:10:30 07/30/20 21 08/04/2021 MATER NIT21 PLUS CORE (CHR2 1, 18, 13, SEX approved by [facility] Sukumar hackett MD, PhD, [facility] tor, [place] [facility] Labor atori es Not Available [facility] (Lab) [address] [place], [address], 08/04/2021 14:10:30 07/30/20 21 08/04/2021 MATER NIT21 PLUS CORE (CHR2 1, 18, 13, SEX trisomy 21 (down syndrome) Negati ve Not Available [facility] (Lab) [address] [place], [address], 08/04/2021 14:10:30 07/30/20 21 08/04/2021 MATER NIT21 PLUS CORE (CHR2 1, 18, 13, SEX trisomy 18 (zelaya syndrome) Negati ve Not Available [facility] (Lab) [address] [place], [address], 08/04/2021 14:10:30 07/30/20 21 08/04/2021 MATER NIT21 PLUS CORE (CHR2 1, 18, 13, SEX trisomy 13 (patau syndrome) Negati ve Not Available [facility] (Lab) [address] [place], [address], 08/04/2021 14:10:30 07/30/20 21 08/04/2021 MATER NIT21 PLUS CORE (CHR2 1, 18, 13, SEX sex SPRCS Consi stent with Femal e Not Available [facility] (Lab) [address] [place], [address], 08/04/2021 14:10:30 07/30/20 21 08/04/2021 MATER NIT21 PLUS CORE (CHR2 1, 18, 13, SEX negative predictive value Note The Negat ted Predi ctive Value (NPV) for triso my 21, 18, and 13 is great er than 99%. The NPV for SCA and ESS canno t be calcu lated as SCA and ESS are only repor geno when an abnor malit y is detec geno. Not Available [facility] ([facility]) [address] [facility], [place], [address], 08/04/2021 14:10:30 07/30/20 21 08/04/2021 MATER NIT21 PLUS CORE (CHR2 1, 18, 13, SEX positive predictive value N/A Not Available [facility] ([facility]) [address] [facility], [place], [address], 08/04/2021 14:10:30 07/30/20 21 08/04/2021 MATER NIT21 PLUS CORE (CHR2 1, 18, 13, SEX about the test [facility] The Mater niT(R ) 21 PLUS labor atory -deve loped test (LDT) abigail zes circu latin g cell- free DNA from a mater nal blood sampl e. The test is indic ated for use in pregn ant women with incre ased risk for chrom osoma l aneup loidy . Valid ation data on twin pregn ancie s is limit ed and the abili ty of this test to detec t aneup loidy in a tripl et pregn rosario has not yet been valid ated. Not Available [facility] (Lab) [address], [place], [address], 08/04/2021 14:10:30 07/30/20 21 08/04/2021 MATER NIT21 PLUS CORE (CHR2 1, 18, 13, SEX test method SPRCS Circu latin g cell- free DNA was purif ied from the plasm a compo nent of mater nal blood . The extra cted DNA was then conve rted into a indidebt ic DNA aime ry for aneup loidy abigail sis of chrom osome s 21, 18, and 13 via next gener ation seque ncing .[1] Optio nal findi ngs based on the test order inclu de sex chrom osome aneup loidy (SCA) [2], and enhan pérez seque ncing serie s (ESS) [3], which will only be repor geno on as an addit ional findi ng when an abnor malit y is detec geno. SCA testi ng inclu darren infor matio n on X and Y repre senta tion, while ESS testi ng inclu darren delet ions in selec geno regio ns (22q, 15q, 11q, 8q, 5p, 4p, 1p) and triso my of chrom osome s 16 and 22. Not Available [facility] [address] [place], [address], 08/04/2021 14:10:30 07/30/20 21 08/04/2021 MATER NIT21 PLUS CORE (CHR2 1, 18, 13, SEX performance SPRCS The perfo rmanc e caleb cteri stics of the Mater niT(R ) 21 PLUS labor atory -deve loped test (LDT) have been deter mined in a clini gary valid ation study with pregn ant women at incre ased risk for chrom osoma l aneup loidy .[1], [2],[ 3],[4 ] Not Available [facility] [address] [facility], [place], [address], 08/04/2021 14:10:30 07/30/20 21 08/04/2021 MATER NIT21 PLUS CORE (CHR2 1, 18, 13, SEX performance characterist ics Note ----- ----- ----- ----- ----- ----- ----- ----- ----- ----- ----- ---- ! Y-Chr omoso me (Feta l Sex) ! Accur acy: 99.4% ! !---- ----- ----- ----- ----- ----- ----- ----- ----- ----- ----- ---! ! Jr n (trev harvey syndr ome) ! Est. Sens# ! Est. Spec ! !---- ----- ----- ----- ----- ----- ----- ----- ----- ----- ----- ---! ! Alessandroo my 21 (Down Syndr ome) ! 99.1% ! 99.9% ! !---- ----- ----- ----- ----- ----- ----- ----- ----- ----- ----- ---! ! Tal my 18 (Mayelin mohamud Syndr ome) ! >99.9 % ! 99.6% ! !---- ----- ----- ----- ----- ----- ----- ----- ----- ----- ----- ---! ! Alessandroo my 13 (Pata u Syndr ome) ! 91.7% ! 99.7% ! !---- ----- ----- ----- ----- ----- ----- ----- ----- ----- ----- ---! ! Sex Chrom osome Chandler centeno es## ! 96.2% ! 99.7% ! !---- ----- ----- ----- ----- ----- ----- ----- ----- ----- ----- ---! * Gaby lora in ISCA datab ase nstd3 7 [http :[email or web address] sea [email or web address] nical genom [email or web address] /sear [email or web address] ] # Estim ated Sensi tivit y. Sensi tivit y estim ated acros s the obser walter size distr ibuti on of each syndr ome [per ISCA datab ase nstd3 7] and acros s the range of fract ions obser walter in routi ne clini gary NIPT. Actua l sensi tivit y can also be influ enced by other facto rs such as the size of the event , total seque nce count s, ampli ficat ion bias, or seque nce bias. ## Singl eton gesta tion only. Not Available [facility] [address] [place] [address] [place], [address], 08/04/2021 14:10:30 07/30/20 21 08/04/2021 MATER NIT21 PLUS CORE (CHR2 1, 18, 13, SEX limitations of the test SPRCS While the resul ts of these tests are highl y accur ate, disco rdant resul ts, inclu ding inacc urate sex predi ction , may occur due to place ntal, mater nal, or mosai cism or neopl asm; vanis daniela twin; prior mater nal organ trans plant ; or other cause s. Sex chrom osoma l aneup loidi es are not repor table for known multi ple gesta tions . These tests are scree susan tests and not diagn ostic ; they do not repla ce the accur acy and preci pili of prena bradley diagn osis with CVS or amnio cente sis. A patie nt with a posit ted test resul t shoul d be refer red for cece ic couns eling and offer ed invas ted prena bradley diagn osis for confi rmati on of test resul ts.[5 ] A negat ted resul t does not ensur e an unaff ected pregn rosario nor does it exclu de the possi bilit y of other chrom osoma l abnor malit ies or defec ts which are not a part of these tests . An uninf ormat ted resul t may be repor geno, the cause s of which may inclu de, but are not limit ed to, insuf ficie nt seque ncing cover age, noise or artif acts in the regio n, ampli ficat ion or seque ncing bias, or insuf ficie nt fract ion. These tests are not inten ded to ident jose pregn ancie s at risk for neura l tube defec ts or ventr al wall defec ts. Testi ng for whole chrom osome abnor malit ies (incl uding sex chrom osome s) and for subch romos omal abnor malit ies could lead to the poten tial disco very of both and mater nal genom ic abnor malit ies that could have major , minor , or no, clini gary signi fican ce. Evalu ating the signi fican ce of a posit ted or a non-r eport able resul t may invol ve both invas ted testi ng and addit ional studi es on the mothe r. Such inves tigat ions may lead to a diagn osis of mater nal chrom osoma l or subch romos omal abnor malit ies, which on occas ion may be assoc iated with benig n or malig nant mater nal neopl asms. These tests may not accur ately ident jose tripl oidy, meliza pérez rearr angem ents, or the preci se locat ion of subch romos omal dupli catio ns or delet ions; these may be detec geno by prena bradley diagn osis with CVS or amnio cente sis. The abili ty to repor t resul ts may be impac geno by mater nal BMI, mater nal weigh t, mater nal syste brian lupus eryth emato norberto (SLE) and/o r by certa in pharm aceut ical agent s such as low molec ular weigh t hepar in (for examp le: Loven ox(R) , Xapar in(R) , Clexa ne(R) and Fragm in(R) ). The resul ts of this testi ng, inclu ding the benef its and limit ation s, shoul d be discu ssed with a quali fied healt hcare provi yefri. Pregn rosario manag ement decis ions, inclu ding termi natio n of the pregn rosario, shoul d not be based on the resul ts of these tests alone . The healt hcare provi yefri is respo nsibl e for the use of this infor matio n in the manag ement of their patie nt. Not Available [facility] [address] [place], [address], 08/04/2021 14:10:30 07/30/20 21 08/04/2021 MATER NIT21 PLUS CORE (CHR2 1, 18, 13, SEX note SPRCS This test was devel oped and its perfo rmanc e caleb cteri stics deter mined by [facility]. It has not been clear ed or appro walter by the Food and Drug Admin istra tion. This labor atory is certi fied under the Clini gary Labor atory Impro vemen t Amend ments (CLIA ) as quali fied to perfo rm high compl exity clini gary labor atory testi ng and accre dited by the [facility]uced[facility] Patho logis ts (CAP) . If there is futur e clini gary need for addin g Mater niT GENOM E testi ng, this speci men will be avail able until term. [facility] sampl es will not be retai ana beyon d 60 days. [facility] patie nts will have to send a new sampl e for re-se quenc ing ([facility] Test Code: 72349 4). Not Available [facility] [address], [place], [address], 08/04/2021 14:10:30 07/30/20 21 08/04/2021 MATER NIT21 PLUS CORE (CHR2 1, 18, 13, SEX references SPRCS 1. Eldon MIDDLETON, et al. Cece Med. 2012; 14(3) :296- 305. 2. Christen MORRISON et al. Prena t Diag. 2013; 33(6) :591- 597. 3. Yung C, et al. Clin Chem. 2015 Apr;6 1(4): 608-6 16. 4. Eldon MIDDLETON et al. Cece Med. 2011; 13(11 ):913 -920. 5. [facility]/ [facility] Joint Commi ttee Opini on No. 545, Oct 2012. Not Available [facility] (Lab) [address] [place], [address], 08/04/2021 14:10:30 07/30/20 21 08/04/2021 MATER NIT21 PLUS CORE (CHR2 1, 18, 13, SEX pdf . Not Available [facility] ([facility]) [address], [place], [address], 08/04/2021 14:10:30 07/30/20 21 08/02/2021 URINA LYSIS , ROUTI NE specific gravity 1.024 1.005- 1.030 Not Available [facility] ([facility]) [address] [place], [address], 08/23/2021 11:11:09 07/30/20 21 08/02/2021 URINA LYSIS , ROUTI NE pH 7.0 5.0-7. 5 Not Available [facility] ([facility]) [address] [place], [address], 08/23/2021 11:11:09 07/30/20 21 08/02/2021 URINA LYSIS , ROUTI NE urine-color Yellow yellow Not Available [facility] ([facility]) [address] [place], [address], 08/23/2021 11:11:09 07/30/20 21 08/02/2021 URINA LYSIS , ROUTI NE appearance Clear clear Not Available [facility] ([facility]) [address] [place], [address], 08/23/2021 11:11:09 07/30/20 21 08/02/2021 URINA LYSIS , ROUTI NE WBC esterase Trace negati ve abnormal Not Available [facility] ([facility]) [address] [place], [address], 08/23/2021 11:11:09 07/30/20 21 08/02/2021 URINA LYSIS , ROUTI NE protein Trace negati ve/tra ce Not Available [facility] ([facility]) [address] [place], [address], 08/23/2021 11:11:09 07/30/20 21 08/02/2021 URINA LYSIS , ROUTI NE glucose Negati ve negati ve Not Available [facility] ([facility]) [address] [place], [address], 08/23/2021 11:11:09 07/30/20 21 08/02/2021 URINA LYSIS , ROUTI NE ketones Negati ve negati ve Not Available [facility] ([facility]) [address] [place], [address], 08/23/2021 11:11:09 07/30/20 21 08/02/2021 URINA LYSIS , ROUTI NE occult blood Negati ve negati ve Not Available [facility] ([facility]) [address] [place], [address], 08/23/2021 11:11:09 07/30/20 21 08/02/2021 URINA LYSIS , ROUTI NE bilirubin Negati ve negati ve Not Available [facility] ([facility]) [address] [place], [address], 08/23/2021 11:11:09 07/30/20 21 08/02/2021 URINA LYSIS , ROUTI NE urobilinogen ,semi-qn 0.2 mg/dL 0.2-1. 0 Not Available [facility] ([facility]) [address] [place], [address], 08/23/2021 11:11:09 07/30/20 21 08/02/2021 URINA LYSIS , ROUTI NE nitrite, urine Negati ve negati ve Not Available [facility] ([facility]) [address] [facility], [place], [address], 08/23/2021 11:11:09 07/30/20 21 08/02/2021 URINA LYSIS , ROUTI NE microscopic examination See below: Not Available [facility] ([facility]) [address] [facility], [place], [address], 08/23/2021 11:11:09 07/30/20 21 08/02/2021 URINA LYSIS , ROUTI NE WBC 0-5 /hpf 0 - 5 Not Available [facility] ([facility]) [address] [facility], [place], [address], 08/23/2021 11:11:09 07/30/20 21 08/02/2021 URINA LYSIS , ROUTI NE RBC 0-2 /hpf 0 - 2 Not Available [facility] ([facility]) [address] [facility], [place], [address], 08/23/2021 11:11:09 07/30/20 21 08/02/2021 URINA LYSIS , ROUTI NE epithelial cells (non renal) >10 /hpf 0 - 10 abnormal Not Available [facility] ([facility]) [address] [facility], [place], [address], 08/23/2021 11:11:09 07/30/20 21 08/02/2021 URINA LYSIS , ROUTI NE epithelial cells (renal) INTERNAL AUDIT MANAGER Not Available [facility] ([facility]) [address] [facility], [place], [address], 08/23/2021 11:11:09 07/30/20 21 08/02/2021 URINA LYSIS , ROUTI NE casts None seen /lpf none seen Not Available [facility] ([facility]) [address] [facility], [place], [address], 08/23/2021 11:11:09 07/30/20 21 08/02/2021 URINA LYSIS , ROUTI NE cast type INTERNAL AUDIT MANAGER Not Available [facility] ([facility]) [address] [facility], [place], [address], 08/23/2021 11:11:09 07/30/20 21 08/02/2021 URINA LYSIS , ROUTI NE crystals INTERNAL AUDIT MANAGER Not Available [facility] ([facility]) [address] [facility], [place], [address], 08/23/2021 11:11:09 07/30/20 21 08/02/2021 URINA LYSIS , ROUTI NE crystal type INTERNAL AUDIT MANAGER Not Available [facility] ([facility]) [address] [place], [address], 08/23/2021 11:11:09 07/30/20 21 08/02/2021 URINA LYSIS , ROUTI NE mucus threads INTERNAL AUDIT MANAGER Not Available [facility] ([facility]) [address] [place], [address], 08/23/2021 11:11:09 07/30/20 21 08/02/2021 URINA LYSIS , ROUTI NE bacteria Few none seen/f ew Not Available [facility] ([facility]) [address] [place], [address], 08/23/2021 11:11:09 07/30/20 21 08/02/2021 URINA LYSIS , ROUTI NE yeast INTERNAL AUDIT MANAGER Not Available [facility] ([facility]) [address] [place], [address], 08/23/2021 11:11:09 07/30/20 21 08/02/2021 URINA LYSIS , ROUTI NE trichomonas INTERNAL AUDIT MANAGER Not Available [facility] ([facility]) [address] [place], [address], 08/23/2021 11:11:09 07/30/20 21 08/02/2021 URINA LYSIS , ROUTI NE comment INTERNAL AUDIT MANAGER Not Available [facility] ([facility]) [address] [place], [address], 08/23/2021 11:11:09 07/30/2008/23/2021 WRITT EN AUTHO ZAK ROB written authorizatio n Commen t No Writt en Autho zak rob Hernando watson. Not Available [facility] ([facility]) [address] [facility], [place], [address], 08/23/2021 11:11:10 Result Notes None recorded. Problems Name Problem SNOMED Code Status Onset Date Resolution Date Notes Provider Name and Address Organization Details Recorded Time Pregnanc y 79368822 Completed 202001/04/2022 Erasmo Spears DO Attn: Prabhakar ware,[address] [place], [address], [facility] 2 10:49:11 Under immunize d [id number] Completed Varicella non-immun e Erasmo Spears DO Attn: Prabhakar ware,[address] [place], [address], [facility] 2 10:49:09 Problem Notes None recorded. Medical Equipment None Reported. Allergies No known drug allergies Medications Not known to be on any medication Vitals Date Recorded Systolic blood pressure Diastolic blood pressure Provider Name and Address Organization Details Last Updated DateTime 07/30/2021 110 mm[Hg] 68 mm[Hg] Evelyn Ortiz [facility] 07/30/2021 15:41:01 Date Recorded Body weight Provider Name an d Address Organization Details Last Updated DateTime 07/30/2021 [phone] g Elia Nguyễn [facility] 16:38:39 Social History None recorded. Functional Status None recorded. Mental Status None recorded. Family History Relationship Description Onset Age of this Age Resolved Age Notes LastModified by Organization Details LastModified Time Maternal Grandfather Diabetes mellitus [email or web address] Not available 07/30 15:50:14 Mother Diabetes mellitus [email or web address] Not available 07/30 15:50:31 Medical History No medical history recorded. Gynecological History Statement/Question Response Flow Moderate Frequency of Cycle (Q days) 28 Sexually Active? Y Menses Monthly Y Duration of Flow (days) 7 Sexual Problems? N Current Control Method None LMP Definite Obstetrics History GPAL:G 1 P 0 0 0 0 Past Encounters Encounter ID Performer Location Encounter Start Date Encounter Closed Date Diagnosis/Indication Diagnosis SNOMED-CT Code Diagnosis ICD10 Code Diagnosis Note [id number] ELIA GARRETT, DO [facility] ([employer] WORK[employer]) [address] [place] [address] 07/30/2021 15:17:14 08/01/2021 13:29:34 Routine care 211269179 Z34.90 NOB appointmen t today. 15w5d based on FDLMP c/w 12 wk US in [place] -off by 2 days. NOB labs and dating US today. No N/V. No VB, VD, or lower abdominal pain. Cell-free DNA today given dependable dating. RTC in 4 weeks. NOB exam at that time. Health Concerns Section Related Observation LastModified by Organization Detai ls LastModified Time None Recorded Concern Status LastModified by Organization Details LastModified Time None Recorded Advance Directives Directive None Recorded Payers Encounter Date Sequence Insurance Name Policy Number Policy Amezcua Covered Member ID Amezcua Member ID Guarantor Name 07/30/2021 1 MEDICAID - [id number] - PENDING [id number] Elsie pat Notes Date Note Type Note Provider Name and Address Organization Details Recorded Time 07/30/2021 text/html Patient present for her NOB appointment today. She a at 15w5d based on FDLMP c/w 12 wk US in [place]. The ultrasound was off by 2 days. She has a copy of this US and will bring it to her next appointment. This is an unplanned but desired . No N/V. No VB, VD, or lower abdominal pain. No other complaints. Elia Nguyễn [facility], [place] - S[facility] 08/01/2021 12:56:30 OBGyn Episode Ob Episode Information Episode Created Date Number of Fetuses Patient Bloodtype Patient rh Status Prepregnancy Weight lbs Domestic Partner Domestic Partner Phone Father Name Scientific Informatics Project Leader Status 07/30/20 21 1 A Positive CLOSED Fetus Data First Name Last Name Admitted to NICU Weight (g) Sex Living Outcome Pediatric Complications Fetus ID Race Codes Race Delivery Type [id number] Problems Problem Notes Problem Name Start Date End Date Resolution Snomed Code Not e Under immunized [id number] Vari johnny non-immune Eliel Calculation Initial Eliel Date Initial Exam Date Initial Exam Provider Initial Ultrasound Date Last Menstrual Period Date Ultra Sound Weeks Gestation 01/16/2022 07/30/2021 [email or web address] 04/11/2021 0 Eighteen To Twenty Week Eliel Update Ultra Sound Date Fundal Height At Umbil Quickening Date Ultra Sound Latest Weeks Gestation Final Eliel Confirmed By Final Eliel Confirmed Date Final Eliel Date Ultra Sound Latest Days Gestation 0 01/16/20 22 0 Pre- Flowsheet Flowsheet Date 07/30/2021 Krishna Score Blood Edema Fundus Height Fundus Units Glucose Ketones Leukocytes Nitrite Labor Signs Protein Cervic Dilation Cervic Effacement Cervic Station none Type Weight in lbs Pre/Post Dialysis Refused Weight [id number] BP Diastolic BP Location Tested BP Systolic BP Type 68 110 sitting Fetus Heart Rate Present A 160 Fetus Movement Comments NOB appointment today. 15w5d based on FDLMP c/w 12 wk US in [place] -off by 2 days. NOB labs and dating US today. No N/V. No VB, VD, or lower abdominal pain. Cell- free DNA today given dependable dating. RTC in 4 weeks. NOB exam at that time. Menstrual History Last Menstrual Date Menses Monthly On Bcp Conception Prior Menses Frequency Hcg Plus Date Menarche Onset Age 0504/11/2021 Genetic Screening And Infection History Question Response Note Patient's Age Will Be 35 Years Or Older At Estim ated Date of Delivery false Thalassemia (Romansh, Salvadorean, Mediterranean, Or Background): MCV < 80 false Neural Tube Defect (Meningomyelocele, Spina Bifi da, Or Anencephaly) false Congenital Heart Defect false Down Syndrome false Lobito-Sachs (eg, Voodoo, Cajun, [place]an-[place]) f alse Rob Disease false Sickle Cell Disease Or Trait () false Hemophilia Or Other Blood Disorders false Muscular Dystrophy false Cystic Fibrosis false Ogle's Chorea false Mental Retardation/Autism false If Yes, Was Person Tested For Fragile X? false Other Inherited Genetic Or Chromosomal Disorder false Maternal Metabolic Disorder (eg, Type 1 Diabetes , PKU) false Patient Or Baby's Father Had A Child With Defects Not Listed Above false Recurrent Loss, Or A Stillbirth false Medications (including Suppl ements, Vitamins, Herbs, OTC Drugs), Illicit/Recreational Drugs, Alcohol false If Yes, Agent(s) And Strength/Dosage false Any Other Genetic History false Live With Someone With TB Or Exposed To TB false Patient Or Partner Has History Of Genital Herpes false Rash Or Viral Illness Since Last Menstrual Perio d false History Of STD, Gonorrhea, Chlamydia, HPV, Syphi lis false Other Infection History false History of HIV false History of Hepatitis false Prior GBS-infected child false Delivery Information Delivery Date Delivery Type Labor Anesthesia Weeks Gestation Incision Type Labor Labor Length Hrs Delivered By Post Complications Tubal Sterilization Discharge Date Comments Discharge Information Feeding Method Contraceptive Method Maternal HG B and HCT Levels
--- OUTSIDE RECORDS SUMMARY | 2025-04-29 22:16 | XMS_ITS | Continuity of Care Document ---
Author Organization [facility] Address [address] [place] [address] Phone Care Team Providers Care Last Dipper Name Role Phone Evelyn Ferrell DO Unavailable Unavailable Allergies, Adverse Reactions, Alerts Substance Reaction Status Criticality No Known Drug Allergies Active No I nformation Medications Medication Instructions Dosage Effective Dates (start - stop) Status Comments triamcinolone acetonide 0.1 % topical ointment apply on elbow rash twice daily for 5 days only during bad flare ups - Active Apply on rash twice daily for 5-7 days only. hydrocortisone acetate 1 % topical ointment 1pply on rash 3 times a day fopr 5 days only - Active Procedures Procedure Date Immun. admin. with counselin g - pediatric/adolescent - first vac./tox. COMPONENT Immun. admin. with counselin g - pediatric/adolescent - first vac./tox. COMPONENT URINE TEST, BY VISUAL COLOR CO MPARISON METHODS GLUCOSE; QUANTITATIVE, BLOOD (EXCEPT ABBEY GENT STRIP) HEMOGLOBIN; GLYCOSYLATED (A1C) PERIODIC COMPREHENSIVE PREVENTIVE MED RE E/M; ESTABLISHED PATIENT; 11-16 OFFICE/OUTPATIENT VISIT, EST VFC - Meningococcal Recombinant Pro, Ser ogroup B, 2 Dose VFC-Flulaval, Preservative Free, 3-18 Ye ars, Quadrivalent OFFICE/OUTPATIENT VISIT, NEW URINE TEST, BY VISUAL COLOR CO MPARISON METHODS SCREENING TEST OF VISUAL ACUITY, QUANTIT ATIVE, BILATERAL VFC-Flulaval, Preservative Free, 3-18 Ye ars, Quadrivalent VFC-MENINGOCOCCAL CONJUGATE VACCINE, (TE TRAVALENT), FOR INTRAMUSCULAR USE VFC - Meningococcal Recombinant Pro, Ser ogroup B, 2 Dose PERIODIC COMPREHENSIVE PREVENTIVE MED RE E/M; ESTABLISHED PATIENT; 11-16 OFFICE OUTPT EST 25 MIN HEMOGLOBIN; GLYCOSYLATED (A1C) 19 GLUCOSE; QUANTITATIVE, BLOOD (EXCEPT ABBEY GENT STRIP) SCREENING TEST OF VISUAL ACUITY, QUANTIT ATIVE, BILATERAL Immun. admin. with counselin g - pediatric/adolescent - first vac./tox. COMPONENT VFC-Influenza Preservative Free, 3-18 Ye ars, Quadrivalent PERIODIC COMPREHENSIVE PREVENTIVE MED RE E/M; ESTABLISHED PATIENT; 11-16 OFFICE/OUTPATIENT VISIT, EST HEMOGLOBIN; GLYCOSYLATED (A1C) 18 OFFICE/OUTPATIENT VISIT, EST OFFICE OUTPT EST 25 MIN URINE TEST, BY VISUAL COLOR CO MPARISON METHODS LIPID PANEL VFC-Influenza Preservative Free, 3-18 Ye ars, Quadrivalent PERIODIC COMPREHENSIVE PREVENTIVE MED RE E/M; ESTABLISHED PATIENT; 11-16 URINE TEST, BY VISUAL COLOR CO MPARISON METHODS HEMOGLOBIN; GLYCOSYLATED (A1C) TRANSFERASE; ALANINE AMINO (ALT) (SGPT) LIPID PANEL Screening test, pure tone, air only Immun. admin. with counselin g - pediatric/adolescent - first vac./tox. COMPONENT VFC-Influenza Preservative Free, 3-18 Ye ars, Quadrivalent PERIODIC COMPREHENSIVE PREVENTIVE MED RE E/M; ESTABLISHED PATIENT; 11-16 OFFICE OUTPT EST 25 MIN URINE TEST, BY VISUAL COLOR CO MPARISON METHODS Urinalysis, Auto, w/o Scope COLLECTION OF VENOUS BLOOD BY VENIPUNCTU RE BLOOD COUNT; COMPLETE (CBC), AUTOMATED (HGB, HCT, RBC, WBC AND PLATELET COUNT) HIV-1 Antigen, W/HIV-1 & HIV-2 Antibody, Single Re Screening test, pure tone, air only Immun. admin. with counselin g - pediatric/adolescent - first vac./tox. COMPONENT VFC-Influenza Preservative Free, Intrana sohan, 2-18 Years, Quadrivalent OFFICE OUTPT EST 25 MIN URINE TEST, BY VISUAL COLOR CO MPARISON METHODS Urinalysis, Auto, w/o Scope COLLECTION OF VENOUS BLOOD BY VENIPUNCTU RE HIV-1 Antigen, W/HIV-1 & HIV-2 Antibody, Single Re BLOOD COUNT; COMPLETE (CBC), AUTOMATED (HGB, HCT, RBC, WBC AND PLATELET COUNT) Dental sealant per tooth Dental sealant per tooth Dental sealant per tooth Dental sealant per tooth Dental sealant per tooth Dental sealant per tooth Dental sealant per tooth Dental Bitewings Radiographic, Two Image s Dental Panoramic Radiographic Image Dental prophylaxis child Flouride Varnish Oral hygiene instruction Comprehensve oral evaluation OFFICE OUTPT EST 25 MIN OFFICE/OUTPATIENT VISIT, EST Immun. admin. with counselin g - pediatric/adolescent - first vac./tox. COMPONENT HUMAN PAPILLOMA VIRUS VACCINE QUADRIV 3 DOSE IM OFFICE OUTPT EST 25 MIN URINE TEST, BY VISUAL COLOR CO MPARISON METHODS BLOOD COUNT; COMPLETE (CBC), AUTOMATED D IFF COLLECTION OF VENOUS BLOOD BY VENIPUNCTU RE Immun. admin. with counselin g - pediatric/adolescent - first vac./tox. COMPONENT HUMAN PAPILLOMA VIRUS VACCINE QUADRIV 3 DOSE IM HEMOGLOBIN; GLYCOSYLATED (A1C) 14 Urinalysis, Auto, w/o Scope COLLECTION OF CAPILLARY BLOOD SPECIMEN ( EG, FINGER, HEEL, EAR STICK) OFFICE/OUTPATIENT VISIT, EST Screening test, pure tone, air only Immun. admin. with counselin g - pediatric/adolescent - first vac./tox. COMPONENT Immun. admin. with counselin g - pediatric/adolescent - first vac./tox. COMPONENT HUMAN PAPILLOMA VIRUS VACCINE QUADRIV 3 DOSE IM Immun. admin. with counselin g - pediatric/adolescent - first vac./tox. COMPONENT MENINGOCOCCAL VACCINE, IM Immun. admin. with counselin g - pediatric/adolescent - first vac./tox. COMPONENT TDAP VACCINE 7 YR + IM Immun. admin. with counselin g - ped/adol - [place] [id number] COLLECTION OF VENOUS BLOOD BY VENIPUNCTU RE PERIODIC COMPREHENSIVE PREVENTIVE MED RE E/M; ESTABLISHED PATIENT; 04-10 PURE TONE AUDIOMETRY (THRESHOLD); AIR AN D BONE SCREENING TEST OF VISUAL ACUITY, QUANTIT ATIVE, BILATERAL COLLECTION OF VENOUS BLOOD BY VENIPUNCTU RE PERIODIC COMPREHENSIVE PREVENTIVE MED RE E/M; ESTABLISHED PATIENT; 04-10 PURE TONE AUDIOMETRY (THRESHOLD); AIR AN D BONE NONINVASIVE EAR OR PULSE OXI METRY FOR OXYGEN SATURATION; SINGLE DETERMINATION SCREENING TEST OF VISUAL ACUITY, QUANTIT ATIVE, BILATERAL COLLECTION OF VENOUS BLOOD BY VENIPUNCTU RE PERIODIC COMPREHENSIVE PREVENTIVE MED RE E/M; ESTABLISHED PATIENT; 04-10 PURE TONE AUDIOMETRY (THRESHOLD); AIR AN D BONE SCREENING TEST OF VISUAL ACUITY, QUANTIT ATIVE, BILATERAL COLLECTION OF VENOUS BLOOD BY VENIPUNCTU RE SCREENING TEST OF VISUAL ACUITY, QUANTIT ATIVE, BILATERAL PERIODIC COMPREHENSIVE PREVENTIVE MED RE E/M; ESTABLISHED PATIENT; 04-10 OFFICE/OUTPATIENT VISIT, EST PURE TONE AUDIOMETRY (THRESHOLD); AIR AN D BONE SCREENING TEST OF VISUAL ACUITY, QUANTIT ATIVE, BILATERAL PERIODIC COMPREHENSIVE PREVENTIVE MED RE E/M; ESTABLISHED PATIENT; 04-10 SCREENING TEST OF VISUAL ACUITY, QUANTIT ATIVE, BILATERAL COLLECTION OF VENOUS BLOOD BY VENIPUNCTU RE LEAD VFC-VARICELLA VIRUS VACCINE, LIVE, SUBQ USE HCY - Age 5-11, Established Patient, Ful l Screening COLLECTION OF VENOUS BLOOD BY VENIPUNCTU RE BLOOD COUNT; COMPLETE (CBC), AUTOMATED (HGB, HCT, RBC, WBC AND PLATELET COUNT) LEAD BLOOD COUNT; HEMOGLOBIN (HGB) 7 COLLECTION OF VENOUS BLOOD BY VENIPUNCTU RE VFC-POLIOVIRUS VACCINE, INACTIVATED, (IP V), SUBQ USE HCY - Age 1-4, Established Patient, Full Screening VFC-MEASLES, MUMPS & RUBELLA VIRUS VACCINE (MMR), LIVE, SUBQ/JET INJECTION USE VFC-DIPHTHERIA, TETANUS TOXO IDS, & ACELLULAR PERTUSSIS VACCINE (DTAP), IM USE Comprehensve oral evaluation Topical fluor w/o prophy chi Dental bitewings two films Oral hygiene instruction Dental prophylaxis child OFFICE O/P EST 5 MIN SKIN TEST; TUBERCULOSIS, INTRADERMAL Mar OFFICE/OUTPATIENT VISIT, EST OFFICE OUTPT EST 10 MIN VFC-HEPATITIS A VACCINE, PED IATRIC/ADOLESCENT DOSAGE-2 DOSE SCHEDULE, IM USE BLOOD COUNT; COMPLETE (CBC), AUTOMATED (HGB, HCT, RBC, WBC AND PLATELET COUNT) OFFICE OUTPT NEW 30 MIN LEAD Advance Directives Directive Yes / No Effective Date File Name No Information Encounters Encounter Description Practice Location Reason(s) For Visit Diagnoses Date Provider Providers Copied on Encounter [facility], [address], [place], [place], [address] , [place] tel: [phone] [facility] No Information 1 Mariaelena Rivas. [address], [place], [place], [address], [place]. [phone] PERIODIC COMPREHENSIVE PREVENTIVE MED REE/M; ESTABLISHED PATIENT; 11-16 [facility], [address], [place], [place], [address] , tel: [phone] [facility] cholesterol (chief complaint)We ll Child 11-21 Years (chief complaint) Encounter for routine child health exam w abnormal findingsMixe d hyperlipidem iaOverweight Dietary counseling and surveillance BMI pediatric, 85% to less than 95th percentile for age 1 Mariaelena Rivas. [address], [place], [place], [address], [place]. tel:[phone] OFFICE/OUTPATI ENT VISIT, NEW [facility], [address], [place], [place], [address] , [place] tel: [phone] [facility] breast exam (chief complaint) Lump in breastEncntr for junior qa analyst exam (general) (routine) w abnormal findings 9 No Information PERIODIC COMPREHENSIVE PREVENTIVE MED REE/M; ESTABLISHED PATIENT; 11-16 [facility], [address], [place], [place], [address] , [place] tel: [phone] [facility] Well child (chief complaint)ab normal ALT/lipids (chief complaint) BMI pediatric, greater than or equal to 95% for ageEncounter for screening for eye and ear disordersWel l child check with abnormal findingObesi tyElevation of level of transaminase Lump in breastElevat ed cholesterol w/ elevated triglyceride sPure hyperglyceri demia 9 Mariaelena Rivas. [address], [place], [place], [address], . tel:[phone] PERIODIC COMPREHENSIVE PREVENTIVE MED REE/M; ESTABLISHED PATIENT; 11-16 [facility], [address], [place], [place], [address] , tel:[phone] [facility] Well child (chief complaint) Encounter for exam of eyes and vision w/o abnormal findingsBMI pediatric, greater than or equal to 95% for ageWell child check with abnormal findingObesi tyElevated fasting triglyceride s 8 Mariaelena Rivas. [address], [place], [place], [address], [place]. tel:[phone] Referring Provider: Evelyn Ferrell, [address], [place], [address] . tel:[phone] OFFICE/OUTPATI ENT VISIT, EST [facility], [address], [place], [place], [address] , tel:[phone] [facility] cholesterol (chief complaint) Elevated fasting triglyceride s 8 Mariaelena Rivas. [address], [place], [place], [address], [place]. tel:[phone] Referring Provider: Evelyn Ferrell, [address], [place], [address] . tel:[phone] OFFICE OUTPT EST 25 MIN [facility], [address], [place], [place], [address] , [place] tel:[phone] [facility] fasting labs (chief complaint)me nstrual issue (chief complaint) Elevated fasting triglyceride sIrregular menstruation , unspecified 7 Mariaelena Rivas. [address], [place], [place], [address], . tel:[phone] Referring Provider: Evelyn Ferrell, [address], [place], [address] . tel:[phone] PERIODIC COMPREHENSIVE PREVENTIVE MED REE/M; ESTABLISHED PATIENT; 11-16 [facility], [address], [place], [place], [address] , [place] tel: [phone] [facility] 12yr wellvisit (chief complaint) Well child check with abnormal findingOverw eightBMI pediatric, 85% to less than 95th percentile for age 7 Rosialden Rivas. [address], [place], [place], [address], [place]. tel:[phone] Referring Provider: Evelyn Ferrell, [address], [place], [address] . tel:[phone] PERIODIC COMPREHENSIVE PREVENTIVE MED REE/M; ESTABLISHED PATIENT; 11-16 [facility], [address], [place], [place], [address] , [place] tel: [phone] [facility] 11yr wellvisit (chief complaint)Fo llow Up of eczema (chief complaint) Encntr for routine child health exam w/o abnormal findingsEcze maLow vision, both eyesWell child check w/ abnormal finding 6 No Information OFFICE OUTPT EST 25 MIN [facility], [address], [place], [place], [address] , [place] tel: [phone] [facility] 10yr physical (chief complaint) Encounter for routine child health exam w abnormal findingsOver weightCatego ry 1 visual impairment in both eyes 5 No Information [facility], [address], [place], [place], [address] , [place] tel: [phone] [facility] Dental examination 5 Heber Krueger. [address], [place], [place], [address], [place]. tel:[phone] [facility], [address], [place], [place], [address] , [place] tel: [phone] [facility] examination 5 No Information OFFICE OUTPT EST 25 MIN [facility], [address], [place], [place], [address] , [place] tel: [phone] [facility] alergies (chief complaint) Allergy to dust mitesAllergi c rhinitis 5 No Information OFFICE/OUTPATI ENT VISIT, EST [facility], [address], [place], [place], [address] , [place] tel: [phone] [facility] alllergy test (chief complaint) Food allergy 5 No Information [facility], [address], [place], [place], [address] , [place] tel: [phone] [facility] Allergic rhinitis 5 No Information OFFICE OUTPT EST 25 MIN [facility], [address], [place], [place], [address] , [place] tel: [phone] [facility] hpv (chief complaint) Childhood immunization sAllergic rhinitisAlle rgy to animal danderEosino philia 5 No Information OFFICE/OUTPATI ENT VISIT, EST [facility], [address], [place], [place], [address] , [place] tel: [phone] [facility] 2 hpv (chief complaint) Childhood immunization s 4 No Information PERIODIC COMPREHENSIVE PREVENTIVE MED REE/M; ESTABLISHED PATIENT; 04-10 [facility], [address], [place], [place], [address] , [place] tel: [phone] [facility] 9yr physical (chief complaint) Routine Child Health ExamOther examination of ears and hearingLow vision both eyes 4 No Information PERIODIC COMPREHENSIVE PREVENTIVE MED REE/M; ESTABLISHED PATIENT; 04-10 [facility], [address], [place], [place], [address] , [place] tel: [phone] [facility] Well Child Visit (chief complaint) Routine Infant/Child Health VisitLow vision, 2 eyesEczemaRo utine infant or child health check 3 No Information PERIODIC COMPREHENSIVE PREVENTIVE MED REE/M; ESTABLISHED PATIENT; - [facility], [address], [place], [place], [address] , [place] tel: [phone] [facility] Well Child Visit (chief complaint) Respiratory abnormalitie s, otherIssue of repeat prescription sRoutine infant or child health check 1 No Information PERIODIC COMPREHENSIVE PREVENTIVE MED REE/M; ESTABLISHED PATIENT; 04-10 [facility], [address], [place], [place], [address] , [place] tel: [phone] [facility] school physical (chief complaint)ab dominal pain (chief complaint) Abdominal pain, left lower quadrantRout ine infant or child health check 0 No Information PERIODIC COMPREHENSIVE PREVENTIVE MED REE/M; ESTABLISHED PATIENT; 04-10 [facility], [address], [place], [place], [address] , [place] tel: [phone] [facility] physical (chief complaint) Routine or child health checkAtopic dermatitis and related conditions 9 No Information [facility], [address], [place], [place], [address] , [place] tel: [phone] Historic Immunization Location No Information 9 No Information HCY - Age 5-11, Established Patient, Full Screening [facility], [address], [place], [place], [address] , [place] tel: [phone] [facility] ISSUE OF MED CERTIF NECNEED PRPHYL VC VARICELLAROU TIN CHILD HEALTH EXAM Aug- 8 Antoun Amal. [address], [place], [place], [address], [place]. tel:[phone] [facility], [address], [place], [place], [address] , [place] tel: [phone] [facility] LABORATORY EXAMINATION Aug- 7 No Information HCY - Age 1-4, Established Patient, Full Screening [facility], [address], [place], [place], [address] , [place] tel: [phone] [facility] DERMATITIS NOSROUTIN CHILD HEALTH EXAMNONINF GASTROENTERI T NEC 7 No Information [facility], [address], [place], [place], [address] , [place] tel: [phone] [facility] DENTAL EXAMINATION 7 No Information OFFICE O/P EST 5 MIN [facility], [address], [place], [place], [address] , [place] tel: [phone] [facility] FOLLOW-UP EXAM NOS 7 No Information OFFICE/OUTPATI ENT VISIT, EST [facility], [address], [place], [place], [address] , [place] tel: [phone] [facility] FOLLOW-UP EXAM NEC 7 No Information OFFICE OUTPT EST 10 MIN [facility], [address], [place], [place], [address] , [place] tel: [phone] [facility] DERMATITIS NOSFOLLOW-UP EXAM NEC 7 No Information OFFICE OUTPT NEW 30 MIN [facility], [address], [place], [place], [address] , [place] tel: [phone] [facility] ROUTIN CHILD HEALTH EXAMISSUE MEDICAL CERTIFICATVA CCIN FOR SINGL DIS NOSDERMATITI S NOS 6 No Information Family History Family Member Type Diagnosis Age At Onset Problem (finding) No family history of Br east cancer Brother Problem (finding) Elevated liver enzymes 12 Brother Problem (finding) Eczema Brother Problem (finding) hypertriglyceridemia 12 Immunizations Vaccine Date Status Comments Bexsero (MenB) administered Note: TOLEARA SHAKIRA WELL. ; Source: New Immunization Record Fluzone/Flulaval/Fluarix Abilio d (Influenza, 6 months and older, preservative free) administered Note: TOLERATE D WELL. ; Source: New Immunization Record Bexsero (MenB) administered Source: New I mmunization Record Menactra (MCV4P) administered Source: New Immunization Record Flulaval/Fluzone Quad (Influenza, 6 months and older, preservative free) administered Source: New Im munization Record 6 months and older, preservative free, quadrivalent administered Source: New Immuniza tion Record 6 months and older, preservative free, quadrivalent administered Source: New Immuniza tion Record Influenza, injectable, 3 yrs or older (Fluzone) administered Source: New Immuniza tion Record Influenza, live, intranasal, quadrivalent Flumist Quad administered Source: New Immuniza tion Record HPV administered Source: New Imm unization Record HPV administered Source: New Imm unization Record Tdap administered Source: New Imm unization Record MCV4 administered Source: New Imm unization Record HPV administered Source: New Imm unization Record Influenza, injectable, quadrivalent, preservative free, 3 yrs or older administered Source: New Immuniz ation Record VFC-VARICELLA VIRUS VACCINE, LIVE, SUBQ USE administered Source: New Immuniza tion Record VFC-DIPHTHERIA, TETANUS TOXOIDS, & ACELLULAR PERTUSSIS VACCINE (DTAP), IM USE administered Source: New Immun ization Record VFC-MEASLES, MUMPS & RUBELLA VIRUS VACCINE (MMR), LIVE, SUBQ/JET INJECTION USE administered Source: New Immun ization Record VFC-POLIOVIRUS VACCINE, INACTIVATED, (IPV), SUBQ USE administered Source: New Immunization Record VFC-HEPATITIS A VACCINE, PEDIATRIC/ADOLESCENT DOSAGE-2 DOSE SCHEDULE, IM USE administered Source: New Immuni zation Record hep A (ped/adol, 2 dose) administered Gin rce: New Immunization Record VFC-HEMOPHILUS INFLUENZA B VACCINE (HIB), HBOC CONJUGATE (4 DOSE SCHEDULE), IM USE administered Source: New Im munization Record DTaP administered Source: New Imm unization Record polio, inactivated (IPV) administered Gin rce: New Immunization Record varicella administered Source: New Imm unization Record MMR administered Source: New Imm unization Record pneumo (under 5) (PCV7) administered Sour ce: New Immunization Record DTaP administered Source: New Imm unization Record hep B (ped/adol, 3 dose) administered Gin rce: New Immunization Record VFC-HEMOPHILUS INFLUENZA B VACCINE (HIB), HBOC CONJUGATE (4 DOSE SCHEDULE), IM USE administered Source: New Im munization Record polio, inactivated (IPV) administered Gin rce: New Immunization Record pneumo (under 5) (PCV7) administered Sour ce: New Immunization Record polio, inactivated (IPV) administered Gin rce: New Immunization Record pneumo (under 5) (PCV7) administered Sour ce: New Immunization Record VFC-HEMOPHILUS INFLUENZA B VACCINE (HIB), HBOC CONJUGATE (4 DOSE SCHEDULE), IM USE administered Source: New Im munization Record DTaP administered Source: New Imm unization Record hep B (ped/adol, 3 dose) administered Gin rce: New Immunization Record hep B (ped/adol, 3 dose) administered Gin rce: New Immunization Record VFC-HEMOPHILUS INFLUENZA B VACCINE (HIB), HBOC CONJUGATE (4 DOSE SCHEDULE), IM USE administered Source: New Im munization Record DTaP administered Source: New Imm unization Record Payers Payer name Insurance type Covered republican ID Authoriza tion(s) No Information Social History Type Description Quantity Date Captured Comments Sex Female Smoking Status No Information Chief Complaint And Reason For Visit No Information Reason For Referral Reason For Referral No Information Plan Of Treatment Date Type Action Status Goal HPV (2nd) due Goal HPV (3rd) due Goal HPV (3rd) due Goal HPV (2nd) due Goal HPV (3rd) due Goal HPV (2nd) due Goal Diet education completed Goal HPV (3rd) due Goal HPV (2nd) due Goal H&P. Due on due Goal Urinalysis. Due on 13 due Goal Urinalysis. Due on 13 due Goal H&P. Due on due Goal Urinalysis. Due on 13 due Goal H&P. Due on due Goal H&P. Due on due Goal Urinalysis. Due on 13 due Goal Urinalysis. Due on 13 due Goal H&P. Due on due Goal H&P. Due on due Goal Urinalysis. Due on due Goal H&P. Due on due Goal Urinalysis. Due on 13 due Goal Urinalysis. Due on 13 due Goal H&P. Due on due Goal H&P. Due on due Goal Urinalysis. Due on 13 due Goal Urinalysis. Due on 13 due Goal H&P. Due on due Goal Urinalysis. Due on 13 due Goal H&P. Due on due Goal H&P. Due on due Goal Breast exam. Due on 013 due Goal Urinalysis. Due on 13 due Future Order: Lab Order CBC (H/H , RBC, INDICES, WBC, PLT) ([id number]), Appointment on: , Sent on: Sent Future Order: Lab Order POC Urin alysis, Macroscopic ([id number]), Appointment on: , Sent on: Sent Future Order: Lab Order POC Urin alysis, Macroscopic ([id number]), Appointment on: , Sent on: Sent Nutrition Recommendation Nutrition educat ion completed Nutrition Recommendation Nutrition educat ion completed History Of Present Illness Encounter Date Complaint History Of Prese nt Illness Well Child 11-21 Years cholesterol Pt presents with mother for cholesterol check. She hasn't been seen since 11/04/19 [facility] and would also like well visit today. Elevated nonfasting triglycerides, total cholesterol and LDL at that visit. She is exercising about 30 minutes about 2 days per week: calisthenics (planks). No cardio. Eating fruits and vegetables at every meal. Brother with elevated triglycerides as well. She was last seen 10/12/18 for WCC. No recent illnesses, no ER visits. 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 She is in 12th grade at [employer] ([employer] getting Bs and Cs. Self paced. Set to graduate in March. Considering cosmetology after that. Not working now. Gets 8+ hours of sleep. No problems with elimination.LMP 11/28 (10/31, 09/20, 08/15.)completed 2 days ago and just started late last week. Keeping track on phone. regular menses. breast exam 14 yo new patien t here for breast exammenarche 9 yoLMP 10/28/19, regular, lasts 7d, nml amtseen in peds 12/5, L breast lump on examdenies nipple dc/painnot SA MOC: declines completed gardasils/p flu vaccine here w/ mom Well child Pt presents with mother for WCC. She was last seen 10/12/18 for WCC. No recent illnesses, no ER visits. 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 She is in 11th grade at [employer] and getting Bs and Cs. No suspensions/detentions. No PE/No sports. No exercise at home. Working at a [employer]. No eating at work. Working about 30 hours per day. She reports eating healthy. Trying to eat more at home. She doesn't eat lunch at school. Eats breakfast at school (granola bar/juice). Not eating any fruit. Won't bring lunch to school (says it gets squished in bag).She goes to bed immediately after school and doesn't get up until dinner. Bed at 2am. up at 6am. No problems with elimination.LMP completed 2 days ago and just started late last week. regular menses. abnormal ALT/lipids Patient has not been seen since 10/12/18 labs drawn. She had newly elevated liver transaminases and worsening lipids at that time. Well child Pt presents with mother for WCC. She was last seen 10/2017 for WCC but has been seen many times since following abnormal cholesterol/weight. No recent illnesses, no ER visits. 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 She is in 10th grade at [employer] and doing much better. She started year with an F in [employer] [place]. She got an A last year in [employer] [place] but trouble with this teacher this year. Just brought grade up from 32 to 59 and almost a D. going to work on making up missed project. Typically gets As-Cs in school. No suspensions/detentions. No PE/No sports. No exercise at home. doing well with group of friends. She reports eating healthy. Trying to eat more at home. She doesn't eat lunch at school. Eats breakfast at school (granola bar/juice). Not eating any fruit. Won't bring lunch to school (says it gets squished in bag).She goes to bed immediately after school and doesn't get up until dinner. Bed at 2am. up at 6am. No problems with elimination. cholesterol Pt prsents with mother for follow up of abnormal cholesterol. aerospace assemblerDajuan, assisted with video translation. Mom reports not many changes. Child reports less junk food" and processed foods such as frozen pizza, pizza rolls, soda, ice cream. Stopped soday (from 2 times per week). Family eats out about once or twice a week. Drinks juice about 2 cups per day (orange juice), 2 cup milk, water.Eats the school breakfast (muffin and fruit). Eats school lunch. mom makes dinner. Only sometimes vegetables. A lot of starches. [place] the meat a lot but not all the time.Plays basketball with brother for about 30 minutes late in the evening. menstrual issue fasting labs Pt presents with mother and brother for discussion of abnormal labs. Refused guinea pig breeder. No exercise. Fast food about once a week (order pizza, buffet, McDonalds's). Eats breakfast at school: Cereal, muffin or juice). Fruit every morning. Vegetable a few times per week.Mom tried buying more fruits but pt hasn't been eating them (says she didn't know they were there). Also concerned that her perior was due last week but she hasn't started yet. Denies sexual activity. She normally has periods every 3-4 weeks that last for 7 days with 3-4 days of cramping. LMP 09/18, 08/27. 12yr wellvisit Pt presents with mother for WCC. She was last seen 10/06/16. No recent illnesses, no ER visits. Anatomic Pathology Manager refused. She is in 9th grade at [employer] and gest As x2, Bx1, Cx2. no suspensions/detentions. [employer] [facility] this year. making new friends. she is in choir as a class. No extracurricular activity. 11yr wellvisit here with mother for PE, doing well Follow Up of eczema on & off fla re ups 10yr physical doing well, no c oncern alercristi alllergy test mild allergy to maize - cornno skin rash or wheezingmeds - claritinpets - has dog at home hpv no feverallergy to pollen & dog - rash on face, eyes burn, nose congestion meds - none 2 hpv no fever 9yr physical no concern schoo l 6 th grade no menarche meds -nonenkda Functional Status Date Functional Assessmen t No Information Instructions Date Instruction Additional Infor rajesh Men B #2, influenza todaySTI screeningSchool physical form completedRTC in 1 year for WCCBright futures handout given Related to Encounter for routine child health exam w abnormal findings Nonfasting lipids to dayAs no insurance, parent would prefer no follow up appointment unless labs are abnormal. Related to Mixed hyperlipidemia Goal set by patient: 4 days per week exercise. 2 days have to be cardio. Nutritional recommendations including overall healthy diet, 2 fruits and 3 vegetables per day minimum, 2-3 servings of low-fat dairy, limited starches, lean proteins and <8 oz per day fun drink discussed. Goal of 60 minutes per day healthy physical activity was discussed (before any screen time) including patient-specific activities. Recommended limitation of screen time to less than 2 hours per day to assist in encouragement of physical activity. Related to Overweight Use condoms 100% of the time. Re lated to Lump in breast Increase physical activity. Rela shakira to Lump in breast recheck labs today. Will call if still abnormal to determine timing of follow up appointment Related to Elevated cholesterol w/ elevated triglycerides recheck liver enzymes today Rela shakira to Elevation of level of transaminase Nutritional recommen dations including overall healthy diet, 2 fruits and 3 vegetables per day minimum, 2-3 servings of low-fat dairy, limited starches, lean proteins and <8 oz per day fun drink discussed. Goal of 60 minutes per day healthy physical activity was discussed (before any screen time) including patient-specific activities. Recommended limitation of screen time to less than 2 hours per day to assist in encouragement of physical activity. Related to Obesity Consider ultrasound but patient without insuranceDiscussed with gynecology and patient will return to LIBRARY INFORMATION TECHNICIAN for evaluation of breast in 1-2 weeks at different point in menstrual cycle. Will pursue ultrasound at that point if still present. Scheduled With Renee Davidson NP on 11/16 Related to Lump in breast Immunizations: Men B #1, MCV4, influenza todayReturn in 1 months for MCV4#2School physical form completedRTC in 1 year for WCC Related to Well child check with abnormal finding Diet education Related to Body mass index (BMI) pediatric, greater than or equal to 95th percentile for age Exercise education Related to Chuck dy mass index (BMI) pediatric, greater than or equal to 95th percentile for age Nutritional recommen dations including overall heatlthy diet, 2 fruits and 3 vegetables per day minimum, 2-3 servings of low-fat dairy, limited starches, lean proteins and <8 oz per day fun drink discussed. Goal of 60 minutes per day healthy physical activity was discussed (before any screen time) including patient-specific activities. Recommended limitation of screen time to less than 2 hours per day to assist in encouragement of physical activity.Will focus on daily exercise and no skipped meals. Patient to start packing lunch (buy box for lunch not bag) Related to Obesity recheck lipids (fast ing). Return later this week as lab is closed. Related to Elevated fasting triglycerides Immunizations up to date, influenza vaccine todaySchool physical form completedRTC in 1 year for WCC Related to Well child check with abnormal finding Prescribed activity/exercise edu cation Related to Body mass index (BMI) pediatric, greater than or equal to 95th percentile for age Nutritional recommen dations including overall heatlthy diet, 2 fruits and 3 vegetables per day minimum, 2-3 servings of low-fat dairy, limited starches, lean proteins and <8 oz per day fun drink discussed. Goal of 60 minutes per day healthy physical activity was discussed (before any screen time) including patient-specific activities. Recommended limitation of screen time to less than 2 hours per day to assist in encouragement of physical activity.Increase daily activity and work on less fried foods at dinner and more vegetables. Praised for positive changes madeRTC in 3 months for repeat visit/labsFasting lipids today. Related to Elevated fasting triglycerides Urine HCG negativePr aised for keeping track of periods on phone. If concerned about periods being too long or too many days of cramping, recommend scheduling with gynecology to discuss oral hormone treatment. Ibuprofen or Alieve for cramps. Related to Irregular menstruation, unspecified Repeat lipid panel t dajuan-fastingCall with results. RTC in 3 monthsDiscussed multiple dietary and lifestyle changes for patient and family. Patient will focus on starting 20 minutes of daily exercise and working up to 60 minutes. She will also start with vegetable daily at dinner. Related to Elevated fasting triglycerides Immunizations up to date, influenza vaccine given todaySchool physical form completedRTC in 1 year for WCCSTI screening labs Related to Well child check with abnormal finding Labs today Related to BMI p ediatric, 85% to less than 95th percentile for age Nutritional recommen dations including overall heatlthy diet, 2 fruits and 3 vegetables per day minimum, 2-3 servings of low-fat dairy, limited starches, lean proteins and <8 oz per day fun drink discussed. Goal of 60 minutes per day healthy physical activity was discussed (before any screen time) including patient-specific activities. Recommended limitation of screen time to less than 2 hours per day to assist in encouragement of physical activity. Related to Overweight Oral Health Discussed (10-14 yea rs) Related to Encntr for routine child health exam w/o abnormal findings Age appropriate anti cipatory guidance discussed (10-14 years) Related to Encntr for routine child health exam w/o abnormal findings Age appropriate diet discussed () Related to Encntr for routine child health exam w/o abnormal findings Age appropriate safe ty discussed () Related to Encntr for routine child health exam w/o abnormal findings mother to make appt Related to L ow vision, both eyes hydrocortisone 1 % - apply on rash twice daily for 5 days Use gentle soap and warm water to take shower daily. Pat dry with towel. Apply plain vaseline from face to toe. Avoid using Eucerin, Aquaphor,cocoa butter, olive oil and Baby Vaseline. Also Avoid use of scented shampoos, soaps, lotions/creams, etc. Related to Eczema Drink 3 cups of milk , one cup of juice, 6-8 cups of water a day Eat balanced food that contains vegetable 3 times, fruits 2 times, beans/meat/chicken/ fish/pork 2 times a dayAvoid soda, sweet drinks. energy drinks & high calorie foodseat 3 meals & 2 snacks dailydiscussed - STI's, safe sex practice, use of condoms, controlTylenol - Give one tablet every 4-6 hrs as needed for fever or pain Related to Encntr for routine child health exam w/o abnormal findings Age appropriate diet discussed (11-14 years) Related to Encntr for routine child health exam w/o abnormal findings refer to visual merchandising specialist Related to Low vision, both eyes Age appropriate anti cipatory guidance discussed (11-14 years) Related to Encntr for routine child health exam w/o abnormal findings Provide 3 meals and 3 snacks daily. Provide healthy, balanced food. Related to Encntr for routine child health exam w/o abnormal findings Safety - Car seat, h elmet, sports, stranger danger, and private parts. Related to Encntr for routine child health exam w/o abnormal findings Age appropriate safe ty discussed (11-14 years) Related to Encntr for routine child health exam w/o abnormal findings Handout given Related to Encnt r for routine child health exam w/o abnormal findings Nutrition - Offer milk/fruits/vegetables and meat/fish/chicken. Related to Encntr for routine child health exam w/o abnormal findings diet & exercise wilda fication discussed eat low calorie food - eat more vegetables.fruits & drink more water Related to Overweight Discussed Nutrition and Physical Activity Related to Overweight diet and exercise modification R elated to Overweight Age appropriate anti cipatory guidance discussed (11-14 years) Related to Encntr for routine child health exam w/o abnormal findings Age appropriate diet discussed (11-14 years) Related to Encntr for routine child health exam w/o abnormal findings Age appropriate safe ty discussed (11-14 years) Related to Encntr for routine child health exam w/o abnormal findings Oral Health Discussed (-14 yea rs) Related to Encntr for routine child health exam w/o abnormal findings refer to visual merchandising specialist 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 Avoid allergy triggers.benadryl 25 mg if flare ups of skin rash Related to Allergy to dust mites claritin Related to Aller gic rhinitis lab results discussed Related to Allergy to dust mites claritin daily Related to Aller gy to dust mites benadryl onlt during flare ups R elated to Allergy to dust mites Take one tablet once daily. 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 Avoid allergy triggers. Related to Allergic rhinitis allergy tests Related to Aller gy to animal dander avoid exposure to dog Related to Allergy to animal dander avoid exposure to dog Related to Allergy to animal dander tylenol Related to Child brand immunizations tylenol for fever as needed Rela shakira to Childhood immunizations refer to visual merchandising specialist Related to Low vision both eyes Provide milk 2-3 cup s a day, juice 1 cup a day. Offer vegetables and fruits everyday. Give water 4-5 times a day.Reduce intake of sweet juice/food and deep fried food. Provide healthy snacks. Tylenol -Give one tablet every 4-6 hrs as needed for pain or fever Related to Routine Child Health Exam Age appropriate anti cipatory guidance discussed (11-14 years) Related to Routine Child Health Exam Age appropriate diet discussed (11-14 years) Related to Routine Child Health Exam Age appropriate safe ty discussed (11-14 years) Related to Routine Child Health Exam Oral Health Discussed (-14 yea rs) Related to Routine Child Health Exam Assessments Type Assessment Date No Information Patient Care Teams Name Effective Dates (start - stop) Status Members No Information
--- OUTSIDE RECORDS SUMMARY | 2025-04-29 22:16 | XMS_ITS | Data Portability ---
Author Organization [facility] Address [address] [place] [address] [place] [address] Assessment Encounter Date Assessment Date Assessment LastModified by Organization Details LastModified Time 03/14/2023 03/14/2023 Normal exam May resume normal activities contraceptive plan-- wants OCP. Discussed the usage, side effects, risks, and benefits of OCP use. Questions answered. Prescription given for microgestin. She will start OCP now (on menses) and follow up for a med check with [facility] in 2-3 mos. FU for [facility] Not available 03/16/2023 12:43:49 06/16/2023 06/16/2023 healthy female exam GC/CT/trich done declines further std testing first pap next year contraception-c ondoms. discussed other options, considering nexplanon, info given. HPV vaccine done. FU 1 year or prn [email or web address] Not available 06/24/2023 21:50:01 Plan of Treatment Reminders Order Date Submit Date Provider Last Modified By Organization Details Last Modified Time Details Appointments None recorded. Lab None recorded. Referral None recorded. Procedures None recorded. Surgeries None recorded. Imaging US, obstetric, follow-up 2022 023 JAYCEE Mai, [address], [address], [place], [address], 11:47:56 Medication Orders Microgestin Fe 1.5/30 (28) 1.5 mg-30 mcg (21)/75 mg (7) tablet 2022 023 [facility], [address] [facility], [place], [address], 14:46:51 Patient TargetsNo targets recorded. Patient InstructionsNo instructions recorded. Reason for Referral None Reported. Results Created Date Observation Date Name Description Value Unit Range Abnormal Flag Note LastModifiedBy Organization Detail LastModifiedTime 12/20/19 23 12/20/2022 imagi ng/di agnos tic resul t No observ ation record ed. JAYCEE Hernandez [address], [place], [address], 12/27/2022 03:07:23 12/20/19 23 12/20/2022 US, obste tric, follo w-up No observ ation record ed. [address], [place], [address], 12/20/2022 17:34:41 01/15/20 23 01/15/2023 US, obste tric, follo w-up No observ ation record ed. [address], [place], [address], 01/15/2023 15:22:51 01/15/20 23 01/15/2023 US, obste tric, follo w-up No observ ation record ed. JAYCEE Hernandez [address], [place], [address], 02/09/2023 05:19:01 Result Notes None recorded. Problems Name Problem SNOMED Code Status Onset Date Resolution Date Notes Provider Name and Address Organization Details Recorded Time Pregnanc y 61323431 Completed 202001/24/2022 Anthony Vasquez [facility] 3 16:07:03 Eczema 55388464 Completed Evelyn cornejo [facility] 2 15:08:37 Depressi ve disorder 79399384 Completed 2020 zoloft started 10/30. repeat EPDS next visit. EPDS 13 11/26 Evelyn wongl null, [facility] 2 15:08:37 Eczema 66526484 [facility] 15:08:37 Depressi ve disorder 87151205 Active 2020 on zoloft last Anthony montalvo, [facility] 3 16:06:59 Gestatio nal diabetes mellitus 36315142 Completed BS QID 2xwk NST & growth u/s Evelyn cornejo null, [facility] 2 15:08:37 Anemia 173692223 Completed Evelyn cornejo null, [facility] 2 15:08:37 Past pregnanc y history of gestatio nal diabetes mellitus 283330104 Active 2021 A1- A1c 4.9- routine screening Anthony Vasquez [facility], [facility] 3 16:06:59 Pregnanc y 60676713 Completed 202103/21/2023 Anthony Vasquez [facility], [facility] 3 16:07:03 Past pregnanc y history of gestatio nal diabetes mellitus 770227081 Completed 2021 A1- A1c 4.9- routine screening Anthony Vasquez [facility], [facility] 3 16:06:59 Depressi ve disorder 45199110 Completed 2020 on zoloft last Anthony Vasquez null, [facility] 3 16:06:59 COVID-19 310171924 Completed 2021 asa daily and growth u/s Anthony montalvo [facility] 3 16:06:59 Anemia 221956955 Completed 2021 slowfe BID Anthony montalvo [facility] 3 16:06:59 Problem Notes None recorded. Medical Equipment None Reported. Allergies No known drug allergies Medications Name Sig Start Date Stop Date Status Note LastModified by Organization Details LastModified Time triamcino lone acetonide 0.1 % topical cream 02/13 completed Not Available Not Available Not Available Euthyrox 25 mcg tablet Take 1 tablet every day by oral route. 03/14 completed Not Available Not Available Not Available Zoloft 50 mg tablet Take 150 mg every day by oral route. 02/13 completed Not Available Not Available Not Available OneTouch Ultra Test strips USE 1 TEST STRIP 4 TIMES DAILY FASTING AND 1 HOUR POST MEALS 02/13 completed Not Available Not Available Not Available Zoloft 100 mg tablet Take 1 tablet every day by oral route. 06/11 completed Not Available Not Available Not Available ondansetr on 4 mg disintegr ating tablet Place 1 tablet every 8 hours by translin gual route. 03/14 completed Not Available Not Available Not Available 06/11 completed samples given Not Available Not Available Not Available Classic 28 mg iron-800 mcg tablet 02/13 completed Not Available Not Available Not Available Genesis Fe 1.5/30 (28) 1.5 mg-30 mcg (21)/75 mg (7) tablet Take 1 tablet every day by oral route. 06/16 completed Not Available Not Available Not Available Multi-DHA (with vitamin K) 27 mg iron-800 mcg-260 mg capsule Take 1 capsule every day by oral route. 03/14 completed Not Available Not Available Not Available OneTouch Ultra2 Meter 02/13 completed Not Available Not Available Not Available OneTouch Delica Plus Lancet 33 gauge USE 1 LANCET TO CHECK GLUCOSE 4 TIMES DAILY FASTING AND 1 HOUR POST MEALS 02/13 completed Not Available Not Available Not Available Vitals Date Recorded Body height Body mass index (BMI) Percentile per age and sex Body mass index (BMI) Body weight Systolic blood pressure Diastolic blood pressure Provider Name and Address Organization Details Last Updated DateTime 3 167.64 cm 97 % 34.7 kg/m2 84090.3 5955 g 94 mm[Hg] 63 mm[Hg] [facility] 3 14:38:00 Date Recorded Body height Body mass index (BMI) Percentile per age and sex Body mass index (BMI) Body weight Systolic blood pressure Diastolic blood pressure Provider Name and Address Organization Details Last Updated DateTime 3 167.64 cm 97 % 34.7 kg/m2 80807.3 5955 g 101 mm[Hg] 66 mm[Hg] [facility] 3 14:59:11 Date Recorded Body weight Provider Name an d Address Organization Details Last Updated DateTime 03/14/2023 50433.82865 g Anthony Vasquez [facility] 03/21/2023 16:07:01 Date Recorded Body height Body mass index (BMI) Percentile per age and sex Body mass index (BMI) Systolic blood pressure Diastolic blood pressure Provider Name and Address Organization Details Last Updated DateTime 03/14/2023 167.64 cm 96 % 33.6 kg/m2 117 mm[Hg] 71 mm[Hg] Gilda Vickers [facility] 3 10:53:32 Date Recorded Body height Body mass index (BMI) Percentile per age and sex Body mass index (BMI) Body weight Systolic blood pressure Diastolic blood pressure Provider Name and Address Organization Details Last Updated DateTime 3 167.64 cm 97 % 35 kg/m2 29395.5 4 g 120 mm[Hg] 77 mm[Hg] [facility] 14:46:49 Social History Question Answer Notes LastModified by Organizat ion Details LastModified Time Tobacco Smoking Status Never Smoker Katerina Norris [facility] 09/12/2022 15:04:23 Do You Have An Advance Directive? No [email or web address] Information n ot available 09/12/2022 If You Are , What Was Your Level Of Alcohol Consumption Prior To ? Occasional [email or web address] Information not available 09/12/2022 How Many Years Have You Consumed Alcohol? 0 Information not available 09/12/2022 Are You Blind Or Do You Have Difficulty Seeing? No [email or web address] Information n ot available 09/12/2022 What Is Your Level Of Caffeine Consumption? Occasional [email or web address] Information not available 09/12/2022 How Much Tobacco Do You Chew? None [email or web address] Information not available 09/12/2022 In The 14 Days Before Symptom Onset, Have You Had Close Contact With A Laboratory-confirm ed COVID-19 While That Case Was Ill? No [email or web address] Information n ot available 09/12/2022 In The 14 Days Before Symptom Onset, Have You Had Close Contact With A Person Who Is Under Investigation For COVID-19 While That Person Was Ill? No [email or web address] Information not available 09/12/2022 Have You Been To An Area Known To Be High Risk For COVID-19? No [email or web address] Information not available 09/12/2022 Are You Deaf Or Do You Have Serious Difficulty Hearing? No [email or web address] Information not available 09/12/2022 What Type Of Diet Are You Following? REGULAR [email or web address] Information n ot available 09/12/2022 What Is The Highest Grade Or Level Of School You Have Completed Or The Highest Degree You Have Received? PD60403-8 [email or web address] Information not available 09/12/2022 Are There Any Guns Present In Your Home? No [email or web address] Information not available 09/12/2022 Do You Use Protection During Sex? Usually [email or web address] Information not available 09/12/2022 Do You Use Your Seat Belt Or Car Seat Routinely? Yes [email or web address] Information not available 09/12/2022 Do You Have Smoke And Carbon Monoxide Detectors In Your Home? Yes [email or web address] Information not available 09/12/2022 At What Age Did You Start Smoking Tobacco? 0 [email or web address] Information not available 09/12/2022 How Much Tobacco Do You Smoke? No [email or web address] Information not available 09/12/2022 Do You Use Sunscreen Routinely? No [email or web address] Information not available 09/12/2022 How Many Years Have You Smoked Tobacco? 0 [email or web address] Information not available 09/12/2022 Have You Used IV Drugs? No [email or web address] Information not available 09/12/2022 Do You Have Difficulty Walking Or Climbing Stairs? No [email or web address] Information not available 09/12/2022 Sex: Unknown Functional Status Question Answer Note LastModified by Organizat ion Details LastModified Time Do you use any illicit or recreational drugs? No Information not available 09/12/2022 What is your level of alcohol consumption? None [email or web address] Information not available 09/12/2022 Are you able to walk? YESWOREST [email or web address] Information not available 09/12/2022 Are you able to care for yourself? Yes [email or web address] Information n ot available 09/12/2022 What is your occupation? Unemployed [email or web address] Information not available 09/12/2022 Do you have difficulty dressing or bathing? No Information not available 09/12/2022 What is your exercise level? Occasional Information not available 09/12/2022 Mental Status Question Answer Note LastModified by Organization D etails LastModified Time Do you feel stressed (tense, restless, nervous, or anxious, or unable to sleep at night)? [id number] [email or web address] Information not available 09/12/2022 Family History Relationship Description Onset Age of this Age Resolved Age Notes LastModified by Organization Details LastModified Time Father No current problems or disability [email or web address] Not available 09/04 14:29:50 Mother No current problems or disability Not available 09/04 14:29:50 Notes:Cancer risk form compl ete 09/04/2021 Medical History Condition Response Allergies (Food, seasonal, environmental ) N Other N Drug/Latex Allergies/Reactions N Blood Transfusion N Breast Cancer N Dermatologic Disorders N Lung Disease N Defects or Inherited Disease N Breast Problem N Gestational Diabetes N Hematologic disorders N Anesthesia Complications N History of STI N Deep Vein Thrombosis N Polycystic ovary syndrome N Anxiety Disorder N Autoimmune disease N Arthritis N Polyps N Infertility N Acid Reflux (GERD) N History of abnormal pap N Cancer N Varicosities N Stroke N Neurologic/Epilepsy N Endometriosis N High Cholesterol N Fibromyalgia N Headaches N Kidney Disease N Heart Problems N Thyroid Problems N Kidney or Bladder Problems N GI Problems N Eating Disorder N Anemia N Art (IVF or FET) N Psychiatric Illness N Ovarian Cancer N Diabetes N Pulmonary (TB, Asthma) N Hepatitis/Liver Disease N No Past Medical History Y Eczema N Urinary Tract Infection N Abuse/Domestic Violence N Asthma N Trauma/Violence N Depression/ depression N Heart Disease N Pre-Eclampsia N Hypertension N Osteoporosis N Thrombophilias N Gynecological History Statement/Question Response Date of LMP 05/24/2023 On BCP's at Conception? N N Was last menstrual period normal Y STIs/STDs N HPV Vaccine N Duration of Flow (days) 7 Current Control Method None Age at First Child 16 Sexually Active? Y Condoms Age of first menstrual cycle 9 Date of Last Pap Smear Sexual Problems? N Desired Control Method None LMP Approximate N Obstetrics History GPAL:G 2 P 2 0 0 2 Type Value Full Term 2 Living 2 Total 2 Past Encounters Encounter ID Performer Location Encounter Start Date Encounter Closed Date Diagnosis/Indication Diagnosis SNOMED-CT Code Diagnosis ICD10 Code Diagnosis Note [id number] Selma Horner [facility] [address] [address] 09/04/2021 14:21:09 09/04/2021 19:28:47 test positive 079541157 Z32.01 Risk factors addressed: Tobacco Cessation, Safe Sexual Practices, environmen bradley, work hazards, travel restrictio ns, seat belt use.Eat a health well balanced diet, avoid alcohol, tobacco, and street drugs.Enga ge in daily low impact exercise, avoid temperatur e extremes, and cat, rodent, and bird feces.Avoi d travel to areas where zika virus is a concern.Of fered cf/sma/nip t. Planning on all 3. Handouts given and discussed with patient.Ch ildbirth classes recommende d.New OB sheet given.If previous , counseling . Will schedule follow up visit based on u/s edc. Labs today.Pt verbalizes that she understand s the importance of above instructio ns.All questions were answered.P atient reminded to have annual well woman examinatio n and address [facility] . [id number] Vinny Allen MD Driver [address],[place] [address] 09/04/2021 14:28:00 09/04/2021 16:31:59 screening for malformation 229847597 Z36.3 [id number] Fern Pierce MD Driver [address],[place] [address] 10/02/2021 16:30:13 10/03/2021 18:34:24 Headache 93830406 R51.9 Glycosuria 59526795 R81 Depressive disorder 3548 9007 F32.A Eczema 33623607 L30.9 Routine an tenatal care 918890587 Z34.92 [id number] Fern Pierce MD [facility] [address],[place] [address] 10/24/2021 10:56:04 10/29/2021 13:12:03 Routine care 974380096 Z34.92 Depressive disorder 3548 9007 F32.A [id number] Fern Pierce MD Driver [address],[place] [address] 11/07/2021 14:50:06 11/07/2021 17:07:25 Routine care 946175991 Z34.92 [id number] Fern Pierce MD Driver [address],[place] [address] 11/19/2021 16:45:23 11/19/2021 17:07:06 Gestational diabetes mellitus class A1 59924339 O24.410 Pt wanted to do diet teaching over the phone. Called pt and diet teaching completed. Went over ideal ranges for FBS and pp BS. Went over carb counting and carb ranges for each meal/snack . Gave ideas for foods to eat for meals/snac ks. Discussed drink options and to avoid soda and juice. Told pt she can go online to ADA for meal options or to look up low carb meal recipes online for ideas as well. Pt started checking BS on 12/16 and 2/4 fastings are elevated. 3/6 pp are elevated and pt hasn't consistent ly been checking QID because she states she isn't eating a lot at dinner. Discussed importance of checking BS QID and adjusting diet to follow low carb diet to try to keep BS within normal range. Pt aware if sugars aren't controlled by diet we would discuss starting insulin. Went over NST schedule with pt and importance of keeping these appts and checking BS for her and baby's health. Pts questions were answered [place] [id number] Fern Pierce MD [facility] [address],[place] [address] 11/21/2021 14:57:02 11/21/2021 15:54:22 Gestational diabetes mellitus class A1 38087116 O24.410 [id number] Fern Pierce MD Driver [address],[place] [address] 11/21/2021 15:31:46 11/21/2021 16:15:42 Depressive disorder 25371144 F32.A Gestationa l diabetes mellitus 42430722 O24.410 [id number] Selma Horner [facility] [address] [place] [address] 11/26/2021 13:57:29 11/26/2021 17:13:48 Routine care 551944356 Z34.93 Gestationa l diabetes mellitus 18301144 O24.410 [id number] Fern Pierce MD [facility] [address],[place] [address] 11/26/2021 13:56:21 11/26/2021 14:32:59 Gestational diabetes mellitus class A1 63944978 O24.410 Z3A.32 [id number] Fern Pierce MD [address] [place] [address] 11/26/2021 13:56:50 11/26/2021 15:36:00 Gestational diabetes mellitus class A1 37676965 O24.410 [id number] Selma Horner [facility] [address] [place] [address] 12/03/2021 15:07:43 12/04/2021 18:10:21 Routine care 930712427 Z34.93 [id number] Vinny Allen MD Driver [address],[place] [address] 11/29/2021 16:37:35 11/29/2021 17:32:20 Gestational diabetes mellitus class A1 05495523 O24.410 [id number] Vinny Allen MD Driver [address],[place] [address] 12/03/2021 15:07:11 12/03/2021 16:13:26 Gestational diabetes mellitus class A1 32039240 O24.410 [id number] MD Pau Acosta [address],[place] [address] 12/06/2021 16:41:16 12/06/2021 17:35:32 Gestational diabetes mellitus class A2 30109593 O24.414 [id number] Vinny Allen MD Driver [address],[place] [address] 12/10/2021 15:49:22 12/10/2021 17:05:53 Gestational diabetes mellitus class A1 27531069 O24.410 [id number] Selma Horner [facility] [address],[place] [address] 12/10/2021 15:51:34 12/11/2021 11:08:12 Routine care 614759066 Z34.93 [id number] Vinny Allen MD Driver [address],[place] [address] 12/10/2021 16:36:51 12/11/2021 11:20:18 condition affecting obstetrical care of mother 376273566 O36.8330 Z3A.34 [id number] MD Pau Acosta [address],[place] [address] 12/13/2021 16:38:23 12/13/2021 17:17:00 Gestational diabetes mellitus class A1 33121844 O24.410 [id number] Fern Pierce MD Driver [address],[place] [address] 12/13/2021 17:13:15 12/14/2021 09:10:33 condition affecting obstetrical care of mother 372490982 O36.8330 Z3A.35 [id number] Fern Pierce MD Driver [address],[place] [address] 12/17/2021 15:50:18 12/17/2021 18:12:56 Gestational diabetes mellitus class A1 73345444 O24.410 [id number] Fern Pierce MD Driver [address],[place] [address] 12/17/2021 15:50:45 12/18/2021 16:25:14 Gestational diabetes mellitus 80534649 O24.410 Depressive disorder 3548 9007 F32.A [id number] Fern Pierce MD Driver [address],[place] [address] 12/20/2021 16:36:43 12/21/2021 11:23:58 Gestational diabetes mellitus class A1 55987514 O24.410 [id number] Selma Horner [facility] [address],[place] [address] 12/24/2021 16:01:24 12/24/2021 17:50:45 Routine care 452589945 Z34.93 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 [id number] Fern Pierce MD Driver [address],[place] [address] 12/24/2021 16:00:52 12/24/2021 16:55:16 Gestational diabetes mellitus class A1 76380404 O24.410 Z3A.36 [id number] Vinny Allen MD Driver [address],[place] [address] 12/24/2021 16:01:07 12/24/2021 17:49:28 Gestational diabetes mellitus class A1 48929339 O24.410 [id number] Vinny Allen MD Driver [address],[place] [address] 12/27/2021 16:33:25 12/27/2021 17:58:15 Gestational diabetes mellitus class A1 70496588 O24.410 [id number] Selma Horner CNM [facility] [address],[place] [address] 12/31/2021 15:53:16 12/31/2021 16:20:15 Routine care 842756900 Z34.93 [id number] Fern Pierce MD Driver [address],[place] [address] 12/31/2021 15:54:08 12/31/2021 16:52:52 Gestational diabetes mellitus class A1 38795593 O24.410 Z3A.36 [id number] Vinny Allen MD Driver [address],[place] [address] 01/04/2022 11:41:10 01/04/2022 12:53:39 Gestational diabetes mellitus class A1 80334981 O24.410 [id number] Fern Pierce MD Driver [address],[place] [address] 01/04/2022 12:31:49 01/04/2022 13:46:20 condition affecting obstetrical care of mother 218751379 O36.8330 Z3A.38 [id number] MD Pau Stover [address],[place] [address] 01/07/2022 16:39:36 01/07/2022 17:13:17 Gestational diabetes mellitus class A1 55957291 O24.410 [id number] MD Pau Stover [address],[place] [address] 01/07/2022 16:40:01 01/07/2022 20:29:44 Routine care 189893859 Z34.92 Gestationa l diabetes mellitus 43415212 O24.410 Depressive disorder 3548 9007 F32.A [id number] Vinny Allen MD Driver [address],[place] [address] 01/10/2022 16:33:10 01/11/2022 10:56:43 Gestational diabetes mellitus class A1 75500657 O24.410 [id number] MD Pau Stover [address],[place] [address] 02/13/2022 16:42:31 02/15/2022 15:09:02 Past history of gestational diabetes mellitus 246795830 Z86.32 Depressive disorder 3548 9007 F32.A state 6296513 1 Z39.2 [id number] MD Pau Stover [address],[place] [address] 2022 09:30:32 2022 10:44:57 screening 758092523 Z36.87 [id number] MD Pau Stover [address],[place] [address] 2022 09:33:00 06/14/2022 15:05:22 test positive 448460767 Z32.01 Past pregn rosario history of gestational diabetes mellitus 253369072 Z86.32 Depressive disorder 3548 9007 F32.A [id number] MD Corrie [place] [address],[place] [address] 07/22/2022 12:32:44 07/22/2022 13:22:45 screening 873187851 Z36.82 [id number] MD Pau Stover [address],[place] [address] 07/29/2022 14:49:17 07/29/2022 17:28:29 Routine care 188949518 Z34.92 Depressive disorder 3548 9007 F32.A Past pregn rosario history of gestational diabetes mellitus 159569779 Z86.32 [id number] MD Pau Stover [address],[place] [address] 08/14/2022 11:26:05 08/16/2022 11:10:45 Routine care 130132644 Z34.92 [id number] MD Pau Stvoer [address],[place] [address] 09/12/2022 14:02:39 09/12/2022 14:59:02 screening for malformation 205984762 Z36.3 [id number] Selma Horner [facility] [address],[place] [address] 09/12/2022 14:03:12 09/12/2022 15:31:22 Routine care 686603672 Z34.93 [id number] Aurora Field [facility] [address],[place] [address] 10/18/2022 11:45:35 10/18/2022 13:06:46 Routine care 155100027 Z34.92 Nausea and vomiting 1693 2000 R11.2 [id number] Fern Pierce MD Driver [address],[place] [address] 11/12/2022 16:56:16 11/13/2022 16:08:03 COVID-19 214171189 U07.1 Z3A.28 [id number] MD Pau Stover [address],[place] [address] 11/12/2022 16:56:45 11/13/2022 15:50:07 Routine care 231671056 Z34.92 [id number] MD Pau Stover [address],[place] [address] 12/06/2022 10:34:10 12/06/2022 14:17:27 Routine care 675310386 Z34.92 [id number] MD Pua Stover [address],[place] [address] 12/20/2022 14:08:42 12/20/2022 15:07:50 COVID-19 117897178 U07.1 Z3A.34 [id number] MD Corrie [place] [address],[place] [address] 12/20/2022 14:08:59 12/25/2022 15:36:07 Routine care 324779263 Z34.92 Breech presentation 6096 002 O32.1XX9 [id number] Aurora Field, [facility] [address],[place] [address] 01/03/2023 14:01:38 01/03/2023 14:37:52 Routine care 758559649 Z34.92 [id number] Fern Pierce MD Driver [address],[place] [address] 01/15/2023 13:53:50 01/15/2023 14:54:38 Past history of gestational diabetes mellitus 055318145 Z86.32 Z86.16 Z3A.37 [id number] Fern Pierce MD Driver [address],[place] [id number] 1 01/15/2023 13:54:03 01/17/2023 14:22:57 Routine care [id number] Z34.92 [id number] Fern Pierce MD Driver [address],[place] [address] 01/22/2023 14:54:19 01/22/2023 15:16:23 Routine care [id number] Z34.92 [id number] Fern Pierce MD Driver [address],[place] [address] 03/14/2023 10:44:51 03/17/2023 15:18:10 care [id number] Z39.2 Initial pr escription of oral contraception [id number] Z30.011 [id number] Fern Pierce MD Driver [address],[place] [address] 06/16/2023 14:42:42 06/19/2023 12:52:42 Gynecologic examination 43327275 Z01.419 Health Concerns Section Related Observation LastModified by Organization Detai ls LastModified Time None Recorded Concern Status LastModified by Organization Details LastModified Time None Recorded Advance Directives Directive N: Payers Encounter Date Sequence Insurance Name Policy Number Policy Amezcua Covered Member ID Amezcua Member ID Guarantor Name 01/15/2023 1 [facility] (MEDICAID HMO) [id number] 0003 Elsie Zuniga [id number] Elsie Mendozaviano 01/15/2023 1 [facility] (MEDICAID HMO) [id number] Elsie Zuniga [id number] Elsie Eliane 01/22/2023 1 [facility] (MEDICAID HMO) [id number] 0003 Elsie Zuniga [id number] Elsie Eliane 03/14/2023 1 [facility] (MEDICAID HMO) [id number] 0003 Elsie Zuniga [id number] Elsie Eliane 06/16/2023 1 [facility] (MEDICAID HMO) [id number] 0003 Elsie Zuniga [id number] Elsie Suggso Notes Date Note Type Note Provider Name and Address Organization Details Recorded Time 03/14/2023 text/html Patient is a presenting for a 4 week visit. She had a on 01/24 at 39 weeks GA. Baby Shekhar was 8-5 and is doing very well. Doing well overall. bottlefeeding. Normal lochia. Pain- none. Bowel and bladder function normal. [place] score 7 Period-yes, 03/08 Annual due: due now Concerns: none Fern Pierce MD [address], [place], [address], [facility] 03/16/2023 12:44:47 06/16/2023 text/html Patient is a 18yo who presents for an annual exam. She never started OCP- is scared to take because worried about weight gain, mood, JONES. THey are using condoms and she is very strict about it. sexually active-y HPV vaccine-done contraception-co ndoms seatbelts-y exercise-y depression-denie s domestic violence-denies tobacco-n concerns-n Fern Pierce MD [address], [place], [address], [facility] 06/24/2023 21:50:25 OBGyn Episode Ob Episode Information Episode Created Date Number of Fetuses Patient Bloodtype Patient rh Status Prepregnancy Weight lbs Domestic Partner Domestic Partner Phone Father Name Business Project Analyst Status 10/02/20 21 1 A Positive 173 CLOSED Fetus Data First Name Last Name Admitted to NICU Weight (g) Sex Living Outcome Pediatric Complications Fetus ID Race Codes Race Delivery Type Thi 3543.68 75 F true Full Term Delee Suction Catheter pressure 80-100 mm hg, meconium [id number] Vaginal Delivery Problems Problem Notes Pierce pt Problem Name Start Date End Date Resolution Snomed Code Not e Eczema [id number] Depressive disorder 10/03/2021 MEDICATION [id number] zoloft started 10/30. repeat EPDS next visit. EPDS 13 11/26 Gestational diabetes mellitus 21163226 BS QID 2xwk NST & growth u/s Anemia [id number] Eliel Calculation Initial Eliel Date Initial Exam Date Initial Exam Provider Initial Ultrasound Date Last Menstrual Period Date Ultra Sound Weeks Gestation 01/16/2022 10/02/2021 09/04/2021 04/11/2021 20 Eighteen To Twenty Week Eliel Update Ultra Sound Date Fundal Height At Umbil Quickening Date Ultra Sound Latest Weeks Gestation Final Eliel Confirmed By Final Eliel Confirmed Date Final Eliel Date Ultra Sound Latest Days Gestation 0 [id number] 10/02/2021 01/16/20 22 0 Pre- Flowsheet Flowsheet Date 10/02/2021 Krishna Score Blood Edema Fundus Height Fundus Units Glucose Ketones Leukocytes Nitrite Labor Signs Protein Cervic Dilation Cervic Effacement Cervic Station neg none 28 trace Type Weight in lbs Pre/Post Dialysis Refused Weight 183.920443049830 BP Diastolic BP Location Tested BP Systolic BP Type 72 118 Fetus Heart Rate Present A 155 Fetus Movement A Yes Comments Nydia is a 16yo G1 at 25 weeks for care. Her history is noncontributory except for eczema, and she complains of this in nipple area. Will use hydrocortisone and aquaphor. 3+glucose- had juice and cereal this am. BS now 113. Also having daily frontal JONES, left side. Denies sinus pain, does have seasonal allergies. Will try zyrtec and tylenol. Anatomy US today wnl. GCT next visit. Admits to some depression- EPDS 13. She denies SI/HI, but would like to start medication. Discussed RBA, zoloft sent. Will repeat EPDS next visit, depression precautions given. Discussed and encouraged flu and COVID vaccines. Flowsheet Date 10/24/2021 Krishna Score Blood Edema Fundus Height Fundus Units Glucose Ketones Leukocytes Nitrite Labor Signs Protein Cervic Dilation Cervic Effacement Cervic Station neg none 30 trace Type Weight in lbs Pre/Post Dialysis Refused Weight 188.513532625150 BP Diastolic BP Location Tested BP Systolic BP Type 78 118 Fetus Heart Rate Present A 140 Fetus Movement A Yes Comments Never started zoloft because didn't realize I had sent prescription. Still feels depressed but not worse, denies SI.HI, will start zooloft tonight. Discussed flu, COVID, and Tdap vaccines. She is uncertain if she will get. HAs are better.r GCT today. Flowsheet Date 11/07/2021 Krishna Score Blood Edema Fundus Height Fundus Units Glucose Ketones Leukocytes Nitrite Labor Signs Protein Cervic Dilation Cervic Effacement Cervic Station neg none 28 none trace Type Weight in lbs Pre/Post Dialysis Refused Weight 185.835394948578 BP Diastolic BP Location Tested BP Systolic BP Type 67 118 Fetus Heart Rate Present A 130 Fetus Movement A Yes Comments Doing well. GCT 148, has not done 3hr yet. Is anemic, has not started iron. Discussed importance of these things- will do 3hr this week. Did get flu shot and first COVID vaccine, will do second COVID with Tdap around 11/22. EPDS up to 16. She started the zoloft a week ago and feels the same so far, denies SI/HI. Precautions given. Will do kick counts. Monitor fundal height. Flowsheet Date 11/19/2021 Krishna Score Blood Edema Fundus Height Fundus Units Glucose Ketones Leukocytes Nitrite Labor Signs Protein Cervic Dilation Cervic Effacement Cervic Station Type Weight in lbs Pre/Post Dialysis Refused BP Diastolic BP Location Tested BP Systolic BP Type Fetus Heart Rate Present Fetus Movement Comments Flowsheet Date 11/21/2021 Krishna Score Blood Edema Fundus Height Fundus Units Glucose Ketones Leukocytes Nitrite Labor Signs Protein Cervic Dilation Cervic Effacement Cervic Station Type Weight in lbs Pre/Post Dialysis Refused BP Diastolic BP Location Tested BP Systolic BP Type Fetus Heart Rate Present Fetus Movement Comments Flowsheet Date 11/21/2021 Krishna Score Blood Edema Fundus Height Fundus Units Glucose Ketones Leukocytes Nitrite Labor Signs Protein Cervic Dilation Cervic Effacement Cervic Station neg trace 30 none trace Type Weight in lbs Pre/Post Dialysis Refused Weight 190.028128557153 BP Diastolic BP Location Tested BP Systolic BP Type 71 123 Fetus Heart Rate Present A 140 Fetus Movement A Yes Comments Nydia reports her mood is impr oving, but not a lot. would like to increase dose of zoloft, will start 100mg. Had GDM diet teaching 2.5 days ago, but has only checked 2 fastings since then, zero postprandials. Discussed risks of uncontrolled DM for baby including stillbirth, discussed need to check sugars QID, may do a 2 hour if forgets at one hour. Has not done Tap yet.NST reactive. Flowsheet Date 11/26/2021 Krishna Score Blood Edema Fundus Height Fundus Units Glucose Ketones Leukocytes Nitrite Labor Signs Protein Cervic Dilation Cervic Effacement Cervic Station Type Weight in lbs Pre/Post Dialysis Refused BP Diastolic BP Location Tested BP Systolic BP Type Fetus Heart Rate Present Fetus Movement Comments Flowsheet Date 11/26/2021 Krishna Score Blood Edema Fundus Height Fundus Units Glucose Ketones Leukocytes Nitrite Labor Signs Protein Cervic Dilation Cervic Effacement Cervic Station Type Weight in lbs Pre/Post Dialysis Refused BP Diastolic BP Location Tested BP Systolic BP Type Fetus Heart Rate Present Fetus Movement Comments Flowsheet Date 11/26/2021 Krishna Score Blood Edema Fundus Height Fundus Units Glucose Ketones Leukocytes Nitrite Labor Signs Protein Cervic Dilation Cervic Effacement Cervic Station none 32 Type Weight in lbs Pre/Post Dialysis Refused Weight 191.742986639249 BP Diastolic BP Location Tested BP Systolic BP Type 63 100 Fetus Heart Rate Present A 135 Fetus Movement A Yes Comments For bedtime snack pt has bee n eating crackers or fruit. Reviewed bs with Dr Pierce. We can give her 1 more week to improve diet control. Discussed better options for night time snack and other meals. Otherwise doing well. EPDS 13 Flowsheet Date 11/29/2021 Krishna Score Blood Edema Fundus Height Fundus Units Glucose Ketones Leukocytes Nitrite Labor Signs Protein Cervic Dilation Cervic Effacement Cervic Station Type Weight in lbs Pre/Post Dialysis Refused BP Diastolic BP Location Tested BP Systolic BP Type 71 R arm 110 sitting Fetus Heart Rate Present Fetus Movement Comments Flowsheet Date 12/03/2021 Krishna Score Blood Edema Fundus Height Fundus Units Glucose Ketones Leukocytes Nitrite Labor Signs Protein Cervic Dilation Cervic Effacement Cervic Station Type Weight in lbs Pre/Post Dialysis Refused Weight 191.079234089526 BP Diastolic BP Location Tested BP Systolic BP Type 68 124 Fetus Heart Rate Present Fetus Movement Comments Flowsheet Date 12/03/2021 Krishna Score Blood Edema Fundus Height Fundus Units Glucose Ketones Leukocytes Nitrite Labor Signs Protein Cervic Dilation Cervic Effacement Cervic Station none none trace Type Weight in lbs Pre/Post Dialysis Refused Weight 191.742584798003 BP Diastolic BP Location Tested BP Systolic BP Type 68 124 Fetus Heart Rate Present Fetus Movement A Yes Comments Doing well. BS normal. Encou raged classes and pre admit. Pt will call today. Encouraged to find pedi. Has had flu and 1st covid. Planning 2nd dose and tdap. Flowsheet Date 12/06/2021 Krishna Score Blood Edema Fundus Height Fundus Units Glucose Ketones Leukocytes Nitrite Labor Signs Protein Cervic Dilation Cervic Effacement Cervic Station Type Weight in lbs Pre/Post Dialysis Refused BP Diastolic BP Location Tested BP Systolic BP Type Fetus Heart Rate Present Fetus Movement Comments Flowsheet Date 12/10/2021 Krishna Score Blood Edema Fundus Height Fundus Units Glucose Ketones Leukocytes Nitrite Labor Signs Protein Cervic Dilation Cervic Effacement Cervic Station Type Weight in lbs Pre/Post Dialysis Refused BP Diastolic BP Location Tested BP Systolic BP Type Fetus Heart Rate Present Fetus Movement Comments Flowsheet Date 12/10/2021 Krishna Score Blood Edema Fundus Height Fundus Units Glucose Ketones Leukocytes Nitrite Labor Signs Protein Cervic Dilation Cervic Effacement Cervic Station none none trace Type Weight in lbs Pre/Post Dialysis Refused Weight 190.492886151969 BP Diastolic BP Location Tested BP Systolic BP Type 73 115 Fetus Heart Rate Present Fetus Movement A Yes Comments Doing well. No contractions. Pt did not bring in bs log. Didn't realize she had ob appt today. States all have been normal. Will bring log on . Flowsheet Date 12/10/2021 Krishna Score Blood Edema Fundus Height Fundus Units Glucose Ketones Leukocytes Nitrite Labor Signs Protein Cervic Dilation Cervic Effacement Cervic Station Type Weight in lbs Pre/Post Dialysis Refused BP Diastolic BP Location Tested BP Systolic BP Type Fetus Heart Rate Present Fetus Movement Comments Flowsheet Date 12/13/2021 Krishna Score Blood Edema Fundus Height Fundus Units Glucose Ketones Leukocytes Nitrite Labor Signs Protein Cervic Dilation Cervic Effacement Cervic Station Type Weight in lbs Pre/Post Dialysis Refused BP Diastolic BP Location Tested BP Systolic BP Type 64 R arm 99 sitting Fetus Heart Rate Present Fetus Movement Comments pt did not bring BS log toda y. Flowsheet Date 12/13/2021 Krishna Score Blood Edema Fundus Height Fundus Units Glucose Ketones Leukocytes Nitrite Labor Signs Protein Cervic Dilation Cervic Effacement Cervic Station Type Weight in lbs Pre/Post Dialysis Refused BP Diastolic BP Location Tested BP Systolic BP Type Fetus Heart Rate Present Fetus Movement Comments Flowsheet Date 12/17/2021 Krishna Score Blood Edema Fundus Height Fundus Units Glucose Ketones Leukocytes Nitrite Labor Signs Protein Cervic Dilation Cervic Effacement Cervic Station Type Weight in lbs Pre/Post Dialysis Refused Weight 194.707598568878 BP Diastolic BP Location Tested BP Systolic BP Type 67 106 Fetus Heart Rate Present Fetus Movement Comments Flowsheet Date 12/17/2021 Krishna Score Blood Edema Fundus Height Fundus Units Glucose Ketones Leukocytes Nitrite Labor Signs Protein Cervic Dilation Cervic Effacement Cervic Station neg none 36 none trace Type Weight in lbs Pre/Post Dialysis Refused Weight 194.668368666457 BP Diastolic BP Location Tested BP Systolic BP Type 67 106 Fetus Heart Rate Present A 140 Fetus Movement A Yes Comments Doing well. Really changed h er diet - eliminated soda, juice, packaged foodsd. BS now perfect! support given. A1C today. GBS next visit. Getting COVID vaccine today. Will do Tdap at health dept. mood improved some, butwould like to increase zoloft to 150, script sent. Follow EPDS- repepat in three weeks. Flowsheet Date 12/20/2021 Krsihna Score Blood Edema Fundus Height Fundus Units Glucose Ketones Leukocytes Nitrite Labor Signs Protein Cervic Dilation Cervic Effacement Cervic Station Type Weight in lbs Pre/Post Dialysis Refused BP Diastolic BP Location Tested BP Systolic BP Type 69 R arm 109 sitting Fetus Heart Rate Present Fetus Movement Comments Pt here for NST only - react ted. Pt c/o SOB after activity, and HR elevated. Explains she has anxiety takes medication for it, was at a engineering consultant office earlier and felt weird, now feeling this again. Had pt rest, relax, hydrate during NST and pt states she felt a little better, left side lying, just feels she cant take a deep breath. Spoke with SB who states to monitor, and if persists or worsens to report to ER. Explained recommendations, to rest at home see if resolved, reduce strenuous activity, and monitor. If changes or worsens to report to ER. Pt verbalizes understanding, no further questions. Flowsheet Date 12/24/2021 Krishna Score Blood Edema Fundus Height Fundus Units Glucose Ketones Leukocytes Nitrite Labor Signs Protein Cervic Dilation Cervic Effacement Cervic Station Type Weight in lbs Pre/Post Dialysis Refused BP Diastolic BP Location Tested BP Systolic BP Type Fetus Heart Rate Present Fetus Movement Comments Flowsheet Date 12/24/2021 Krishna Score Blood Edema Fundus Height Fundus Units Glucose Ketones Leukocytes Nitrite Labor Signs Protein Cervic Dilation Cervic Effacement Cervic Station Type Weight in lbs Pre/Post Dialysis Refused BP Diastolic BP Location Tested BP Systolic BP Type Fetus Heart Rate Present Fetus Movement Comments Flowsheet Date 12/24/2021 Krishna Score Blood Edema Fundus Height Fundus Units Glucose Ketones Leukocytes Nitrite Labor Signs Protein Cervic Dilation Cervic Effacement Cervic Station none none trace 1cm 20% -3 Type Weight in lbs Pre/Post Dialysis Refused Weight 196.290159671799 BP Diastolic BP Location Tested BP Systolic BP Type 71 109 Fetus Heart Rate Present Fetus Movement A Yes Comments Doing well. Did not bring bs log. States all have been normal and will bring in her log on . Flowsheet Date 12/27/2021 Krishna Score Blood Edema Fundus Height Fundus Units Glucose Ketones Leukocytes Nitrite Labor Signs Protein Cervic Dilation Cervic Effacement Cervic Station Type Weight in lbs Pre/Post Dialysis Refused Weight 198.033284359462 BP Diastolic BP Location Tested BP Systolic BP Type 74 113 Fetus Heart Rate Present Fetus Movement Comments Flowsheet Date 12/31/2021 Krishna Score Blood Edema Fundus Height Fundus Units Glucose Ketones Leukocytes Nitrite Labor Signs Protein Cervic Dilation Cervic Effacement Cervic Station none none trace Type Weight in lbs Pre/Post Dialysis Refused Weight 196.345411185339 BP Diastolic BP Location Tested BP Systolic BP Type 77 123 Fetus Heart Rate Present Fetus Movement A Yes Comments Doing well. No contractions. Labor precautions given. Pre admit done. BS normal. Pt would like to wait until 40 weeks for induction. Flowsheet Date 12/31/2021 Krishna Score Blood Edema Fundus Height Fundus Units Glucose Ketones Leukocytes Nitrite Labor Signs Protein Cervic Dilation Cervic Effacement Cervic Station Type Weight in lbs Pre/Post Dialysis Refused BP Diastolic BP Location Tested BP Systolic BP Type Fetus Heart Rate Present Fetus Movement Comments Flowsheet Date 01/04/2022 Krishna Score Blood Edema Fundus Height Fundus Units Glucose Ketones Leukocytes Nitrite Labor Signs Protein Cervic Dilation Cervic Effacement Cervic Station Type Weight in lbs Pre/Post Dialysis Refused BP Diastolic BP Location Tested BP Systolic BP Type 74 R arm 112 sitting Fetus Heart Rate Present Fetus Movement Comments Flowsheet Date 01/04/2022 Krishna Score Blood Edema Fundus Height Fundus Units Glucose Ketones Leukocytes Nitrite Labor Signs Protein Cervic Dilation Cervic Effacement Cervic Station Type Weight in lbs Pre/Post Dialysis Refused BP Diastolic BP Location Tested BP Systolic BP Type Fetus Heart Rate Present Fetus Movement Comments Flowsheet Date 01/07/2022 Krishna Score Blood Edema Fundus Height Fundus Units Glucose Ketones Leukocytes Nitrite Labor Signs Protein Cervic Dilation Cervic Effacement Cervic Station Type Weight in lbs Pre/Post Dialysis Refused BP Diastolic BP Location Tested BP Systolic BP Type Fetus Heart Rate Present Fetus Movement Comments Flowsheet Date 01/07/2022 Krishna Score Blood Edema Fundus Height Fundus Units Glucose Ketones Leukocytes Nitrite Labor Signs Protein Cervic Dilation Cervic Effacement Cervic Station neg trace none trace 1cm 50% Type Weight in lbs Pre/Post Dialysis Refused Weight 203.07841712605 BP Diastolic BP Location Tested BP Systolic BP Type 76 138 Fetus Heart Rate Present A 140 Fetus Movement A Yes Comments Doing ok. Mood is definitely improving on 150 zoloft. Did not bring BS- RN will call tomorrow to get. Requesting IOL on 01/14, will schedule. Flowsheet Date 01/10/2022 Krishna Score Blood Edema Fundus Height Fundus Units Glucose Ketones Leukocytes Nitrite Labor Signs Protein Cervic Dilation Cervic Effacement Cervic Station Type Weight in lbs Pre/Post Dialysis Refused BP Diastolic BP Location Tested BP Systolic BP Type 74 R arm 111 sitting Fetus Heart Rate Present Fetus Movement Comments Menstrual History Last Menstrual Date Menses Monthly On Bcp Conception Prior Menses Frequency Hcg Plus Date Menarche Onset Age 0504/11/2021 Genetic Screening And Infection History Question Response Note Mental Retardation/Autism false Patient's Age Will Be 35 Years Or Older At Estim ated Date of Delivery false Thalassemia (Romanian, Hungarian, Mediterranean, Or Background): MCV < 80 false Neural Tube Defect (Meningomyelocele, Spina Bifi da, Or Anencephaly) false Congenital Heart Defect false Down Syndrome false Lobito-Sachs (eg, Roman Catholic, Cajun, Hungarian-[place]) f alse Rob Disease false Sickle Cell Disease Or Trait () false Hemophilia Or Other Blood Disorders false Muscular Dystrophy false Cystic Fibrosis false Frankie's Chorea false Intellectual Disability/Autism false If Yes, Was Person Tested For [...] of Hepatitis false Prior GBS-infected child false Hemoglobinopathy Or Carrier false Other Structural Defect false Recent Travel History Outside of Country false Delivery Information Delivery Date Delivery Type Labor Anesthesia Weeks Gestation Incision Type Labor Labor Length Hrs Delivered By Post Complications Tubal Sterilization Discharge Date Comments 2 Induce d Regional-Ep idural 39.5 false Fern Pierce MD GDM & Gbs+ Discharge Information Feeding Method Contraceptive Method Maternal HG B and HCT Levels Breast Ob Episode Information Episode Created Date Number of Fetuses Patient Bloodtype Patient rh Status Prepregnancy Weight lbs Domestic Partner Domestic Partner Phone Father Name Business Project Analyst Status 07/29/20 22 1 A Positive 200 CLOSED Fetus Data First Name Last Name Admitted to NICU Weight (g) Sex Living Outcome Pediatric Complications Fetus ID Race Codes Race Delivery Type Shekhar 3770.48 35 M true Full Term [id number] Vaginal Delivery Problems Problem Notes Stan ptshort interval preg nancyHIV/1HR GTT WNL Problem Name Start Date End Date Resolution Snomed Code Not e Anemia 11/04/2022 MEDICATION [id number] slowfe B ID COVID-19 09/21/2022 [id number] asa daily and growth u/s Past history of gestational diabetes mellitus 2022 [id number] A1- A1c 4. 9- routine screening Depressive disorder 10/03/2021 [id number] on zoloft last Eliel Calculation Initial Eliel Date Initial Exam Date Initial Exam Provider Initial Ultrasound Date Last Menstrual Period Date Ultra Sound Weeks Gestation 01/31/2023 07/29/2022 2022 04/09/2022 6 Eighteen To Twenty Week Eliel Update Ultra Sound Date Fundal Height At Umbil Quickening Date Ultra Sound Latest Weeks Gestation Final Eliel Confirmed By Final Eliel Confirmed Date Final Eliel Date Ultra Sound Latest Days Gestation 0 [email or web address] 07/29/2022 02/01/20 23 0 Pre- Flowsheet Flowsheet Date 07/29/2022 Krishna Score Blood Edema Fundus Height Fundus Units Glucose Ketones Leukocytes Nitrite Labor Signs Protein Cervic Dilation Cervic Effacement Cervic Station neg none none trace Type Weight in lbs Pre/Post Dialysis Refused Weight 201.362953817823 BP Diastolic BP Location Tested BP Systolic BP Type 75 114 Fetus Heart Rate Present A 150 Fetus Movement A No Comments Elsie is a 17yo a t 13.3 for care. Normal NT last week. Last had GDMA1, normal A1C last month. NIPT today, AFP next visit. She has had her first COVID vaccine will do second soon. We discussed the risks of a short interval - Marylou was born in Jan of this year. Flowsheet Date 08/14/2022 Krishna Score Blood Edema Fundus Height Fundus Units Glucose Ketones Leukocytes Nitrite Labor Signs Protein Cervic Dilation Cervic Effacement Cervic Station neg none none trace Type Weight in lbs Pre/Post Dialysis Refused Weight 205.071894537663 BP Diastolic BP Location Tested BP Systolic BP Type 73 110 Fetus Heart Rate Present A 160 Fetus Movement A No Comments Doing well. Requesting refil l on PNV. AFP today. Anatomy US next visit. Tired and sleeping all the time, but denies depression. Hasn't done second covid vaccine yet, encouraged. Flowsheet Date 09/12/2022 Krishna Score Blood Edema Fundus Height Fundus Units Glucose Ketones Leukocytes Nitrite Labor Signs Protein Cervic Dilation Cervic Effacement Cervic Station Type Weight in lbs Pre/Post Dialysis Refused BP Diastolic BP Location Tested BP Systolic BP Type Fetus Heart Rate Present Fetus Movement Comments Flowsheet Date 09/12/2022 Krishna Score Blood Edema Fundus Height Fundus Units Glucose Ketones Leukocytes Nitrite Labor Signs Protein Cervic Dilation Cervic Effacement Cervic Station neg none none trace Type Weight in lbs Pre/Post Dialysis Refused Weight 210.003005053425 BP Diastolic BP Location Tested BP Systolic BP Type 75 112 Fetus Heart Rate Present Fetus Movement A Yes Comments Doing well. Anatomy scan don e today. Has flu and covid shots scheduled. Would like to do 1 hour gtt in the next few weeks due to history and baby in the 82%. Flowsheet Date 10/18/2022 Krishna Score Blood Edema Fundus Height Fundus Units Glucose Ketones Leukocytes Nitrite Labor Signs Protein Cervic Dilation Cervic Effacement Cervic Station neg none none trace Type Weight in lbs Pre/Post Dialysis Refused Weight 212.21434804263 BP Diastolic BP Location Tested BP Systolic BP Type 69 107 Fetus Heart Rate Present A 146 Present Fetus Movement A Yes Comments patient is having pressure, pain, back pain, discharge, dizziness, and nausea . doing early gct today due to dizziness and nausea, precautions reviewed, plan growth in 4 weeks, requests nausea meds, zofran to pharmacy Flowsheet Date 11/12/2022 Krishna Score Blood Edema Fundus Height Fundus Units Glucose Ketones Leukocytes Nitrite Labor Signs Protein Cervic Dilation Cervic Effacement Cervic Station Type Weight in lbs Pre/Post Dialysis Refused BP Diastolic BP Location Tested BP Systolic BP Type Fetus Heart Rate Present Fetus Movement Comments Flowsheet Date 11/12/2022 Krishna Score Blood Edema Fundus Height Fundus Units Glucose Ketones Leukocytes Nitrite Labor Signs Protein Cervic Dilation Cervic Effacement Cervic Station neg none none trace Type Weight in lbs Pre/Post Dialysis Refused Weight 215.032379047720 BP Diastolic BP Location Tested BP Systolic BP Type 64 97 Fetus Heart Rate Present A 125 Fetus Movement A Yes Comments Doing well. Mood fine. Anemi c, will start iron. US today 61% and breech. Passed GCT, will monitor for sx GDM since had last time. Discuss Tdap next visit. Flowsheet Date 12/06/2022 Krishna Score Blood Edema Fundus Height Fundus Units Glucose Ketones Leukocytes Nitrite Labor Signs Protein Cervic Dilation Cervic Effacement Cervic Station neg none 30 Type Weight in lbs Pre/Post Dialysis Refused Weight 212.10521494644 BP Diastolic BP Location Tested BP Systolic BP Type 54 87 Fetus Heart Rate Present A 125 Fetus Movement A Yes Comments Doing fine, no concerns. Dis cussed and encouraged flu and Tdap, will do. Growth US next visit. Flowsheet Date 12/20/2022 Krishna Score Blood Edema Fundus Height Fundus Units Glucose Ketones Leukocytes Nitrite Labor Signs Protein Cervic Dilation Cervic Effacement Cervic Station Type Weight in lbs Pre/Post Dialysis Refused BP Diastolic BP Location Tested BP Systolic BP Type Fetus Heart Rate Present Fetus Movement Comments Flowsheet Date 12/20/2022 Krishna Score Blood Edema Fundus Height Fundus Units Glucose Ketones Leukocytes Nitrite Labor Signs Protein Cervic Dilation Cervic Effacement Cervic Station trace 33 Type Weight in lbs Pre/Post Dialysis Refused Weight 211.897534297274 BP Diastolic BP Location Tested BP Systolic BP Type 60 98 Fetus Heart Rate Present A 145 Fetus Movement A Yes Comments Doing well. Taking iron. Has appt for flu and Tdap next week. US today 89%, symmetric, and breech. Will add US in 3 weeks. GBS next visit. Flowsheet Date 01/03/2023 Krishna Score Blood Edema Fundus Height Fundus Units Glucose Ketones Leukocytes Nitrite Labor Signs Protein Cervic Dilation Cervic Effacement Cervic Station neg none none trace 1cm 50% -3 Type Weight in lbs Pre/Post Dialysis Refused Weight 215.173777765822 BP Diastolic BP Location Tested BP Systolic BP Type 65 106 Fetus Heart Rate Present Fetus Movement A Yes Comments patient is having some pain. vertex by us, doing well, cash weiss, gbs done precautions reviewed Flowsheet Date 01/15/2023 Krishna Score Blood Edema Fundus Height Fundus Units Glucose Ketones Leukocytes Nitrite Labor Signs Protein Cervic Dilation Cervic Effacement Cervic Station Type Weight in lbs Pre/Post Dialysis Refused BP Diastolic BP Location Tested BP Systolic BP Type Fetus Heart Rate Present Fetus Movement Comments Flowsheet Date 01/15/2023 Krishna Score Blood Edema Fundus Height Fundus Units Glucose Ketones Leukocytes Nitrite Labor Signs Protein Cervic Dilation Cervic Effacement Cervic Station none Type Weight in lbs Pre/Post Dialysis Refused Weight 215.563434046538 BP Diastolic BP Location Tested BP Systolic BP Type 63 94 Fetus Heart Rate Present A 140 Fetus Movement A Yes Comments Doing well. Irregular contra ctions. US today 97%, no longer breech. GBS neg. WOuld like 39w IOL, will schedule. Precautions given. Flowsheet Date 01/22/2023 Krishna Score Blood Edema Fundus Height Fundus Units Glucose Ketones Leukocytes Nitrite Labor Signs Protein Cervic Dilation Cervic Effacement Cervic Station trace 39 3cm 50% -3 Type Weight in lbs Pre/Post Dialysis Refused Weight 215.298564013711 BP Diastolic BP Location Tested BP Systolic BP Type 66 101 Fetus Heart Rate Present Fetus Movement A Yes Comments Doing well. Irregular contra ctions. Great FM. IOL Friday, discussed. Questions answered. Flowsheet Date 03/14/2023 Krishna Score Blood Edema Fundus Height Fundus Units Glucose Ketones Leukocytes Nitrite Labor Signs Protein Cervic Dilation Cervic Effacement Cervic Station Type Weight in lbs Pre/Post Dialysis Refused Weight 208.541938443028 BP Diastolic BP Location Tested BP Systolic BP Type 71 117 Fetus Heart Rate Present Fetus Movement Comments Menstrual History Last Menstrual Date Menses Monthly On Bcp Conception Prior Menses Frequency Hcg Plus Date Menarche Onset Age 0504/09/2022 Genetic Screening And Infection History Question Response Note Mental Retardation/Autism false Patient's Age Will Be 35 Years Or Older At Estim ated Date of Delivery false Thalassemia (Romanian, Hungarian, Mediterranean, Or Background): MCV < 80 false Neural Tube Defect (Meningomyelocele, Spina Bifi da, Or Anencephaly) false Congenital Heart Defect false Down Syndrome false Lobito-Sachs (eg, Roman Catholic, Cajun, Hungarian-[place]) f alse Rob Disease false Sickle Cell Disease Or Trait () false Hemophilia Or Other Blood Disorders false Muscular Dystrophy false Cystic Fibrosis false Frankie's Chorea false Intellectual Disability/Autism false If Yes, Was Person Tested For [...] of Hepatitis false Prior GBS-infected child false Hemoglobinopathy Or Carrier false Other Structural Defect false Recent Travel History Outside of Country false Delivery Information Delivery Date Delivery Type Labor Anesthesia Weeks Gestation Incision Type Labor Labor Length Hrs Delivered By Post Complications Tubal Sterilization Discharge Date Comments 3 Induce d Regional-Ep idural 39 false Fern Pierce MD Anemia Discharge Information Feeding Method Contraceptive Method Maternal HG B and HCT Levels
--- OUTSIDE RECORDS SUMMARY | 2025-04-29 22:16 | XMS_ITS | Clinical Summary ---
Author Organization [facility] Address [address] [place] [address] Care Team Providers Care Microsoft Dynamics Ax Developer Name Role Phone [facility] are Provider Source Comments [facility],non-owned Affiliates and Associated Physician Practices is amultiple site organization consisting of ambulatory clinics and hospital sitesin [place], [place], [place] and [place]. This disclosure is being madepursuant to the Care Everywhere program and may not contain all information available regarding this patient. Last updated 18.[facility] [employer] Allergies Active Allergy Reactions Criticality Noted Date Comments [place] Oil Urticaria Medium 07/03/2017 Medications * Be aware that medications may not be up to date on this document. Alwaysverify current medications with the patient. triamcinolone 0.1 % cream - EUCERIN cream 50:50 CREA Apply to affected area 4 times daily as needed Active Social History Tobacco Use Types Packs/Day Years Used Date Smoking Tobacco: Never Smokeless Tobacco: Never Comments Unknown Sex and Gender Information Value Date Recorded Sex Assigned at Not on file Legal Sex Female 9:59 AM CDT Gender Identity Not on file Sexual Orientation Not on file Last Filed Vital Signs Vital Sign Reading Time Taken Comments Blood Pressure 100/66 07/03/2017 2:27 PM CDT Pulse 80 07/03/2017 2:27 PM CDT Temperature 36.9 C (98.4 F) 07/03/2017 2:27 PM CDT Respiratory Rate 16 07/03/2017 2:27 PM CDT Oxygen Saturation 98% 07/03/2017 2:27 PM CDT Inhaled Oxygen Concentration - - Weight 71.2 kg (157 lb) 07/03/2017 2:27 PM CDT Height 172.7 cm (5' 8) 07/03/2017 2:27 PM CDT Body Mass Index 23.87 07/03/2017 2:27 PM CDT Plan of Treatment Health Maintenance Due Date Last Done Comments HIV SCREENING 2018 HPV VACCINE (1 - 3-dose series) 2018 CHLAMYDIA/GONORRHEA SCREENING 2019 MENINGOCOCCAL (Group B) VACC INE SHARED DECISION-MAKING (1 of 2 - Standard) 2019 HEPATITIS C SCREENING 06/06/2021 DTAP/TDAP/TD VACCINES (1 - Tdap) 2022 HEPATITIS B VACCINE (1 of 3 - 19+ 3-dose series) 2022 COVID-19 VACCINE (1 - 2023-2 5 season) 2024 DEPRESSION SCREENING 12/01/2024 INFLUENZA VACCINE (Season Ended) 2025 ZOSTER VACCINE (1 of 2) 2053 HIB VACCINE Aged Out No longer eligi ble based on patient's age to complete this topic MENINGOCOCCAL GROUPS A/C/Y/W VACCINE Aged Out No longer eligible b ased on patient's age to complete this topic PNEUMOCOCCAL VACCINE Aged Out No long er eligible based on patient's age to complete this topic Care Teams [employer] Developer Relationship Specialty Start Date End Date [address] [place] [address] PCP - General Sales Representative [employer] 07/03/17
--- NOTE | 2025-04-29 22:25 | PC.NURSE ---
Pt presents to ED c/o vaginal bleeding and 10/10 cramping. Pt states she took a test at home and was positive. Pt had 2 full term , no complications
[2025-04-29 22:27] VITALS: BP 105/65; PULSE 104; RESP 20; TEMP 37.9; O2SAT 99
--- OUTSIDE RECORDS SUMMARY | 2025-04-29 22:44 | XMS_ITS | Clinical Summary ---
Author Organization [facility] Address [address] [place] [address] Care Team Providers Care Clinical Pharmacist Name Role Phone [facility] are Provider Source Comments [facility],non-owned Affiliates and Associated Physician Practices is amultiple site organization consisting of ambulatory clinics and hospital sitesin [place], [place], [place] and [place]. This disclosure is being madepursuant to the Care Everywhere program and may not contain all information available regarding this patient. Last updated 18.[facility] [employer] Allergies Active Allergy Reactions Criticality Noted Date Comments [place] Oil Urticaria Medium 07/03/2017 Medications * Be [...] age to complete this topic Care Teams Clinical Pharmacist Relationship Specialty Start Date End Date [facility] [address] [place] [address] PCP - General Slot Machine Key Person 07/03/17
--- OUTSIDE RECORDS SUMMARY | 2025-04-29 22:44 | XMS_ITS | Continuity of Care Document ---
Author Organization [employer] Address [address] [place] [address] Phone Care Team Providers Care Legal Archivist Name Role Phone Evelyn Ferrell DO Unavailable [...] - ped/adol - [place] [id number] COLLECTION OF VENOUS BLOOD BY VENIPUNCTU RE [...] COLLECTION OF VENOUS BLOOD BY VENIPUNCTU RE COLLECTION OF VENOUS BLOOD BY VENIPUNCTU RE [facility] - Age 5-11, Established Patient, Ful l Screening VFC-VARICELLA VIRUS VACCINE, LIVE, SUBQ USE BLOOD COUNT; COMPLETE (CBC), AUTOMATED (HGB, HCT, RBC, WBC AND PLATELET COUNT) LEAD BLOOD COUNT; HEMOGLOBIN (HGB) 7 LEAD COLLECTION OF VENOUS BLOOD BY VENIPUNCTU RE HCY - Age 1-4, Established Patient, Full Screening VFC-MEASLES, MUMPS & RUBELLA VIRUS VACCINE (MMR), LIVE, SUBQ/JET INJECTION USE VFC-DIPHTHERIA, TETANUS TOXO IDS, & ACELLULAR PERTUSSIS VACCINE (DTAP), IM USE VFC-POLIOVIRUS VACCINE, INACTIVATED, (IP V), SUBQ USE Oral hygiene instruction Dental bitewings two films Topical fluor w/o prophy chi Comprehensve oral evaluation Dental prophylaxis child OFFICE O/P EST 5 MIN SKIN TEST; TUBERCULOSIS, INTRADERMAL Mar OFFICE/OUTPATIENT VISIT, EST VFC-HEPATITIS A VACCINE, PED IATRIC/ADOLESCENT DOSAGE-2 DOSE SCHEDULE, IM USE OFFICE OUTPT EST 10 MIN OFFICE OUTPT NEW 30 MIN LEAD BLOOD COUNT; COMPLETE (CBC), AUTOMATED (HGB, HCT, RBC, WBC AND PLATELET COUNT) Advance Directives Directive Yes / No Effective Date File Name No Information Encounters Encounter Description Practice Location Reason(s) For Visit Diagnoses Date Provider Providers Copied on Encounter [facility], [address], [place], [place], [address] , [place] tel: [phone] [facility] No Information 1 Mariaelena Rivas. [address], [place], [place], [address], [place]. 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 [address], [place], [place], [address], [place]. tel:[phone] OFFICE/OUTPATI ENT VISIT, NEW [facility], [address], [place], [place], [address] , [place] tel: [phone] [facility] breast exam (chief complaint) Lump in breastEncntr for insole stiffener exam (general) (routine) w abnormal findings 9 No Information PERIODIC COMPREHENSIVE PREVENTIVE MED REE/M; ESTABLISHED PATIENT; 11-16 [facility], [address], [place], [place], [address] , [place] tel: [phone] [facility] Well child (chief complaint)ab normal ALT/lipids (chief complaint) BMI pediatric, greater than or equal to 95% for ageEncounter for screening for eye and ear disordersWel l child check with abnormal findingObesi tyElevation of level of transaminase Lump in breastElevat ed cholesterol w/ elevated triglyceride sPure hyperglyceri demia 9 Mariaelena Rivas. [address], [place], [place], [address], . tel:[phone] PERIODIC COMPREHENSIVE PREVENTIVE MED REE/M; ESTABLISHED PATIENT; 11-16 [facility], [address], [place], [place], [address] , tel:[phone] [facility] Well child (chief complaint) Encounter for exam of eyes and vision w/o abnormal findingsBMI pediatric, greater than or equal to 95% for ageWell child check with abnormal findingObesi tyElevated fasting triglyceride s 8 Mariaelena Rivas. [address], [place], [place], [address], [place]. tel:[phone] Referring Provider: Evelyn Ferrell, [address], [place], [address] . tel:[phone] OFFICE/OUTPATI ENT VISIT, EST [facility], [address], [place], [place], [address] , tel:[phone] [facility] cholesterol (chief complaint) Elevated fasting triglyceride s 8 Mariaelena Rivas. [address], [place], [place], [address], [place]. tel:[phone] Referring Provider: Evelyn Ferrell, [address], [place], [address] . tel:[phone] OFFICE OUTPT EST 25 MIN [facility], [address], [place], [place], [address] , [place] tel:[phone] [facility] fasting labs (chief complaint)me nstrual issue (chief complaint) Elevated fasting triglyceride sIrregular menstruation , unspecified 7 Mariaelena Rivas. [address], [place], [place], [address], . tel:[phone] Referring Provider: Evelyn Ferrell, [address], [place], [address] . tel:[phone] PERIODIC COMPREHENSIVE PREVENTIVE MED REE/M; ESTABLISHED PATIENT; 11-16 [facility], [address], [place], [place], [address] , [place] tel: [phone] [facility] 12yr wellvisit (chief complaint) Well child check with abnormal findingOverw eightBMI pediatric, 85% to less than 95th percentile for age 7 Rosialden Rivas. [address], [place], [place], [address], [place]. tel:[phone] Referring Provider: Evelyn Ferrell, [address], [place], [address] . tel:[phone] PERIODIC COMPREHENSIVE PREVENTIVE MED REE/M; ESTABLISHED PATIENT; 11-16 [facility], [address], [place], [place], [address] , [place] tel: [phone] [facility] 11yr wellvisit (chief complaint)Fo llow Up of eczema (chief complaint) Encntr for routine child health exam w/o abnormal findingsEcze maLow vision, both eyesWell child check w/ abnormal finding 6 No Information OFFICE OUTPT EST 25 MIN [facility], [address], [place], [place], [address] , [place] tel: [phone] [facility] 10yr physical (chief complaint) Encounter for routine child health exam w abnormal findingsOver weightCatego ry 1 visual impairment in both eyes 5 No Information [facility], [address], [place], [place], [address] , [place] tel: [phone] [facility] examination 5 Heber Krueger. [address], [place], [place], [address], [place]. tel:[phone] [facility], [address], [place], [place], [address] , [place] tel: [phone] [facility] examination 5 No Information OFFICE OUTPT EST 25 MIN [facility], [address], [place], [place], [address] , [place] tel: [phone] [facility] alergies (chief complaint) Allergy to dust mitesAllergi c rhinitis 5 No Information OFFICE/OUTPATI ENT VISIT, EST [facility], [address], [place], [place], [address] , [place] tel: [phone] [facility] alllergy test (chief complaint) Food allergy 5 No Information [facility], [address], [place], [place], [address] , [place] tel: [phone] [facility] Allergic rhinitis 5 No Information OFFICE OUTPT EST 25 MIN [facility], [address], [place], [place], [address] , [place] tel: [phone] [facility] hpv (chief complaint) Childhood immunization sAllergic rhinitisAlle rgy to animal danderEosino philia 5 No Information OFFICE/OUTPATI ENT VISIT, EST [facility], [address], [place], [place], [address] , [place] tel: [phone] [facility] 2 hpv (chief complaint) Childhood immunization s 4 No Information PERIODIC COMPREHENSIVE PREVENTIVE MED REE/M; ESTABLISHED PATIENT; 04-10 [facility], [address], [place], [place], [address] , [place] tel: [phone] [facility] 9yr physical (chief complaint) Routine Child Health ExamOther examination of ears and hearingLow vision both eyes 4 No Information PERIODIC COMPREHENSIVE PREVENTIVE MED REE/M; ESTABLISHED PATIENT; 04-10 [facility], [address], [place], [place], [address] , [place] tel: [phone] [facility] Well Child Visit (chief complaint) Routine Infant/Child Health VisitLow vision, 2 eyesEczemaRo utine infant or child health check 3 No Information PERIODIC COMPREHENSIVE PREVENTIVE MED REE/M; ESTABLISHED PATIENT; - [facility], [address], [place], [place], [address] , [place] tel: [phone] [facility] Well Child Visit (chief complaint) Respiratory abnormalitie s, otherIssue of repeat prescription sRoutine infant or child health check 1 No Information PERIODIC COMPREHENSIVE PREVENTIVE MED REE/M; ESTABLISHED PATIENT; 04-10 [facility], [address], [place], [place], [address] , [place] tel: [phone] [facility] school physical (chief complaint)ab dominal pain (chief complaint) Abdominal pain, left lower quadrantRout ine infant or child health check 0 No Information PERIODIC COMPREHENSIVE PREVENTIVE MED REE/M; ESTABLISHED PATIENT; 04-10 [facility], [address], [place], [place], [address] , [place] tel: [phone] [facility] physical (chief complaint) Routine or child health checkAtopic dermatitis and related conditions 9 No Information [facility], [address], [place], [place], [address] , [place] tel: [phone] Historic Immunization Location No Information 9 No Information HC[facility] - Age 5-11, Established Patient, Full Screening [facility], [address], [place], [place], [address] , [place] tel: [phone] [facility] ISSUE OF MED CERTIF NECNEED PRPHYL VC VARICELLAROU TIN CHILD HEALTH EXAM Aug- 8 Antoun Amal. [address], [place], [place], [address], [place]. tel:[phone] [facility], [address], [place], [place], [address] , [place] tel: [phone] [facility] LABORATORY EXAMINATION Aug- 7 No Information HCY - Age 1-4, Established Patient, Full Screening [facility], [address], [place], [place], [address] , [place] tel: [phone] [facility] DERMATITIS NOSROUTIN CHILD HEALTH EXAMNONINF GASTROENTERI T NEC 7 No Information [facility], [address], [place], [place], [address] , [place] tel: [phone] [facility] DENTAL EXAMINATION 7 No Information OFFICE O/P EST 5 MIN [facility], [address], [place], [place], [address] , [place] tel: [phone] [facility] FOLLOW-UP EXAM NOS 7 No Information OFFICE/OUTPATI ENT VISIT, EST [facility], [address], [place], [place], [address] , [place] tel: [phone] [facility] FOLLOW-UP EXAM NEC 7 No Information OFFICE OUTPT EST 10 MIN [facility], [address], [place], [place], [address] , [place] tel: [phone] [facility] DERMATITIS NOSFOLLOW-UP EXAM NEC 7 No Information OFFICE OUTPT NEW 30 MIN [facility], [address], [place], [place], [address] , [place] tel: [phone] [facility] ROUTIN CHILD HEALTH EXAMISSUE [...] D WELL. ; Source: New Immunization Record Flulaval/Fluzone Quad (Influenza, 6 months and older, preservative free) administered Source: New Im munization Record Menactra (MCV4P) administered Source: New Immunization Record Bexsero (MenB) administered Source: New I mmunization Record 6 months and older, preservative free, [...] older administered Source: New Immuniz ation Record HPV administered Source: New Imm unization Record MCV4 administered Source: New Imm unization Record Tdap administered Source: New Imm unization Record VFC-VARICELLA VIRUS VACCINE, LIVE, SUBQ USE [...] Record hep A (ped/adol, 2 dose) administered Ign rce: New Immunization Record VFC-HEMOPHILUS INFLUENZA B [...] Im munization Record polio, inactivated (IPV) administered Ign rce: New Immunization Record pneumo (under 5) [...] Record Payers Payer name Insurance type Covered alliance party ID Authoriza tion(s) No Information Social History Type Description Quantity Date Captured Comments Sex Female Smoking Status No Information Chief Complaint And Reason For Visit No Information Reason For Referral Reason For Referral No Information Plan Of Treatment Date Type Action Status Goal HPV (3rd) due Goal HPV (2nd) due Goal HPV (2nd) due Goal HPV (3rd) due Goal HPV (2nd) due Goal HPV (3rd) due Goal Diet education completed Goal HPV (2nd) due Goal HPV (3rd) due Goal Urinalysis. Due on 13 due [...] Goal Urinalysis. Due on 13 due Goal Breast exam. Due on 013 due Goal H&P. Due on due Goal Urinalysis. Due on 13 due Future Order: Lab Order CBC (H/H , RBC, INDICES, WBC, PLT) ([id number]), Appointment on: , Sent on: Sent Future Order: Lab Order POC Urin alysis, Macroscopic ([id number]), Appointment on: , Sent on: Sent Future Order: Lab Order POC Urin alysis, Macroscopic ([id number]), Appointment on: , Sent on: Sent Nutrition Recommendation Nutrition educat ion completed Nutrition Recommendation Nutrition educat ion completed History Of Present Illness Encounter Date Complaint History Of Prese nt Illness Well Child 11-21 Years cholesterol Pt presents with mother for cholesterol check. She hasn't been seen since 11/04/19 [facility] and would also like well visit today. Elevated nonfasting triglycerides, total cholesterol and LDL at that visit. She is exercising about 30 minutes about 2 days per week: calisthenics (planks). No cardio. Eating fruits and vegetables at every meal. Brother with elevated triglycerides as well. She was last seen 10/12/18 for WCC. No recent illnesses, no ER visits. plant propagatorManish, assisted with video translation. She is in 12th grade at [employer] getting Bs and Cs. Self paced. Set [...] WCC. No recent illnesses, no ER visits. plant propagator, Manish, assisted with video translation. She is in 11th grade at [employer] and getting Bs and Cs. No suspensions/detentions. No PE/No sports. No exercise at home. Working at a [employer]. No eating at work. Working about 30 [...] cholesterol/weight. No recent illnesses, no ER visits. plant propagator, Manish, assisted with video translation. She is in 10th grade at [employer] and doing much better. She started year with an F in Russian. She got an A last year in Russian but trouble with this teacher this year. [...] mother for follow up of abnormal cholesterol. plant propagatorDajuan, assisted with video translation. Mom reports not [...] Only sometimes vegetables. A lot of starches. [place] the meat a lot but not all the time.Plays basketball with brother for about 30 minutes late in the evening. menstrual issue fasting labs Pt presents with mother and brother for discussion of abnormal labs. Refused fitting room associate. No exercise. Fast food about once a [...] 10/06/16. No recent illnesses, no ER visits. Edger Technician refused. She is in 9th grade at [employer] and gest As x2, Bx1, Cx2. no suspensions/detentions. [employer] school district this year. making new [...] activity. Rela shakira to Lump in breast Nutritional recommen dations including overall healthy diet, [...] encouragement of physical activity. Related to Obesity recheck liver enzymes today Rela shakira to Elevation of level of transaminase recheck labs today. Will call if still abnormal to determine timing of follow up appointment Related to Elevated cholesterol w/ elevated triglycerides Consider ultrasound but patient without insuranceDiscussed with gynecology and patient will return to PERFORMANCE IMPROVEMENT DIRECTOR for evaluation of breast in 1-2 weeks at different point in menstrual cycle. Will pursue ultrasound at that point if still present. Scheduled With Renee Davidson NP on 11/16 Related to Lump in breast Immunizations: Men B #1, MCV4, influenza todayReturn in 1 months for MCV4#2School physical form completedRTC in 1 year for WCC Related to Well child check with abnormal finding Exercise education Related to [place] mass index (BMI) pediatric, greater than or equal to 95th percentile for age Diet education Related to Body mass index [...] to Well child check with abnormal finding Nutritional recommen dations including overall heatlthy diet, [...] encouragement of physical activity. Related to Overweight Labs today Related to BMI p ediatric, 85% to less than 95th percentile for age Oral Health Discussed (10-14 yea rs) Related to Encntr for routine child health exam w/o abnormal findings Age appropriate anti cipatory guidance discussed (-14 years) Related to Encntr for routine child health exam w/o abnormal findings Age appropriate diet discussed (-14 years) Related to Encntr for routine child health exam w/o abnormal findings Age appropriate safe ty discussed (-14 years) Related to Encntr for routine child health exam w/o abnormal findings hydrocortisone 1 % - apply on rash twice daily for 5 days Use gentle soap and warm water to take shower daily. Pat dry with towel. Apply plain vaseline from face to toe. Avoid using Eucerin, Aquaphor,cocoa butter, olive oil and Baby Vaseline. Also Avoid use of scented shampoos, soaps, lotions/creams, etc. Related to Eczema mother to make appt Related to L ow vision, both eyes Drink 3 cups of milk , one [...] health exam w/o abnormal findings refer to dispute specialist Related to Low vision, both eyes Age appropriate anti cipatory guidance discussed (-14 years) Related to Encntr for routine child health exam w/o abnormal findings Provide 3 meals and 3 snacks daily. Provide healthy, balanced food. Related to Encntr for routine child health exam w/o abnormal findings Safety - Car seat, h elmet, sports, stranger danger, and private parts. 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 Avoid allergy triggers.benadryl 25 mg if flare ups of skin rash Related to Allergy to dust mites lab results discussed Related to Allergy to dust mites claritin daily Related to Aller gy to dust mites benadryl onlt during flare ups R elated to Allergy to dust mites claritin Related to Aller gic rhinitis Take one tablet once daily. 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 Avoid allergy triggers. Related to Allergic rhinitis avoid exposure to dog Related to Allergy to animal dander avoid exposure to dog Related to Allergy to animal dander allergy tests Related to Aller gy to animal dander tylenol Related to Child brand immunizations tylenol for fever as needed Rela shakira to Childhood immunizations refer to dispute specialist Related to Low vision both eyes [...]
[2025-04-29] MEDS: ONDANSETRON INJ 4 MG/2 ML VIAL IV PUSH (23:23)
[2025-04-29] MEDS: MORPHINE SULFATE (*CRX) 4 MG/ML INJ IV PUSH (23:24)
[2025-04-29] MEDS: ACETAMINOPHEN 500 MG TABLET 1000 MG PO (23:24)
[2025-04-29] MEDS: SODIUM CHLORIDE 0.9% IV 1,000 ML 999 ML IV CONT (23:25)
--- NOTE | 2025-04-29 23:44 | ED.PREGNANCY ---
HPI - General Chief complaint: Vaginal Bleeding Stated complaint: 8 weeks with bleeding and cramping Time Seen by Provider: 04/29/25 22:14 Source: patient Mode of arrival: ambulatory Limitations: no limitations History of Present Illness HPI Narrative: Patient is a 19-year-old female who presents the ED with report of vaginal bleeding. Patient reports she is around 8 weeks gestation. Last normal menstrual period was February 27, 2025. She has had positive test at home. Has not followed up with OBGYN yet. Has previously seen Dr. Pierce. This makes her . She reports diffuse abdominal pain. Reports nausea associated with the pain. She also mentions she has been sick with URI symptoms over the last 1 week including dry cough, congestion. Denies known fevers. States her significant other has had similar symptoms. Related Data Home Medications ?Medication ?Instructions ?Recorded ?Confirmed ?Last Taken ?Type prenat.vits,gary,[id number] 1 tablet PO DAILY 01/09/23 01/09/23 01/08/23 20:00 History Allergies Allergy/AdvReac Type Severity Reaction Status Date / Time No Known Allergies Allergy Verified 01/09/23 15:56 Review of Systems Review of Systems: All systems reviewed & are unremarkable except as noted in HPI. All systems reviewed & are unremarkable except as noted in HPI and below PMFSH Past Medical History Medical History IUP (intrauterine ), incidental Family History Family History Mother Diabetes mellitus Grandparent Diabetes mellitus Social History Social History Smoking status: Never smoker Substance use: never Lack of Transportation: No Lack of Food: Never True Current Housing: I Have Housing Concerned About Future Housing: No Difficulty Paying Gas/Electric Bills: No Difficulty Paying for Meds: No Currently Unemployed: No Education: High School Diploma/GED Difficulty w/ Childcare or Family Care: No Spiritual care concerns: No Exam Narrative: GENERAL: Mildly uncomfortable appearing, well-nourished, non-toxic, in no acute distress. HEAD: Normocephalic, atraumatic. RESPIRATORY: Airway patent, respirations nonlabored. Clear to auscultation bilaterally, no rales, rhonchi, wheezing. CARDIOVASCULAR: Regular rate and rhythm without murmurs, rubs, or gallops. ABDOMINAL: Soft, mild diffuse tenderness, nondistended. Normoactive BS. PELVIC: Normal external genitalia. Mild amount of dark red blood in vaginal vault. Small clots identified. No evidence of hemorrhage or pooling of fluid. Normal-appearing cervix, appears slightly open. MUSCULOSKELETAL: Moves all extremities. No gross deformities. SKIN: Warm, dry, normal color. NEURO: A&O X3. Speech clear. PSYCHIATRIC: Appropriate mood and affect. Normal interaction. Course Vital Signs Vital signs: Vital Signs Temperature 100.3 F H 04/29/25 22: Pulse Rate 104 H 04/29/25 22:27 Respiratory Rate 20 04/29/25 22:27 Blood Pressure 105/65 04/29/25 22:27 Pulse Oximetry 99 04/29/25 22:27 Oxygen Delivery Room Air 04/29/25 22:27 Temperature 100.3 F H 04/29/25 22:27 Pulse Rate 104 H 04/29/25 22:27 Respiratory Rate 20 04/29/25 22:27 Blood Pressure 105/65 04/29/25 22:27 Pulse Oximetry 99 04/29/25 22:27 Oxygen Delivery Room Air 04/29/25 22:27 MDM - OB/Uterine Contractions MDM Narrative Medical decision making narrative: Patient presented to ED with abdominal pain, vaginal bleeding, approx 8 weeks gestation. Patient mildly tachycardic and febrile upon arrival. She had also reported URI symptoms over the past 1 week. Mildly uncomfortable appearing. Given Tylenol, small dose of pain medicine, fluids. Cbc without leukocytosis or anemia. CMP with bicarb of 19, otherwise stable electrolytes, stable kidney function. Mild transaminitis. Viral swabs negative. Beta hCG 52016. Pelvic exam with mild amount of blood, no evidence of hemorrhage. Pelvic US obtained and does not show any gestational sac. Consider early failed versus nonvisualized ectopic. No abnormalities noted of ovaries. Blood type is A+, no indication for rhogam. Exam likely consistent with spontaneous miscarriage. Patient has passed several large clots in the ED. Discussed case with ANATOLIY Mach[employer] salesperson [employer] and [employer] for [facility], advised to have close follow-up in office. Call office on Friday. Will obtain repeat beta-hCG on Friday. Will place outpatient lab order for this. Patient given strict return precautions. She is in agreement with plan. Feels comfortable w/ discharge home. Discharged in stable condition. Medical Records Attestation: I reviewed the patient's medical records. Lab Data Attestation: I reviewed the patient's lab results. 04/29/25 23:38 04/29/25 23:38 Labs: Lab Results 04/29/25 04/29/25 04/30/25 Range/Units 23:38 23:39 01:16 WBC 6.6 (4.5-10.0) K/mm3 RBC 4.88 (4.2-5.4) M/mm3 Hgb 14.2 D (12.0-15.0) g/dL Hct 42.9 (37.0-47.0) % MCV 87.9 (80-100) fl MCH 29.1 (26-34) pg MCHC 33.1 (32-36) g/dl RDW 13.2 (11.5-14.5) % Plt Count 295 (150-375) k/mm3 MPV 10.2 (7.4-10.4) fl Immature Gran % (Auto) 1.1 H (0-0.5) % Neut % (Auto) 75.1 H (45.5-73.1) % Lymph % (Auto) 16.1 L (18.3-44.2) % [place] % (Auto) 6.8 (2.6-8.5) % Eos % (Auto) 0.6 (0-4.4) % Baso % (Auto) 0.3 (0.2-1.2) % Lymph # (Auto) 1.06 (0.9-3.2) K/mm3 [place] # (Auto) 0.5 (0.1-0.6) K/mm3 Eos # (Auto) 0.0 (0-0.3) K/mm3 Baso # (Auto) 0.0 (0.0-0.1) K/mm3 Abs Immat Gran (auto) 0.07 H (0.00-0.031) K/mm3 Absolute Neuts (auto) 4.9 (1.3-6.7) K/mm3 Absolute Nucleated RBC 0.000 (0.0-0.012) K/mm3 Nucleated RBC % 0.0 (0.0-0.2) % PT 12.7 (11.1-14.7) Seconds INR 0.9 APTT 25.0 (22.3-36.8) Seconds Sodium 135 L (137-145) mmol/L Potassium 3.7 (3.4-5.0) mmol/L Chloride 105 (98-107) mmol/L Carbon Dioxide 19 L (22-30) mmol/L Anion Gap 11 (4-12) mmol/L BUN 9 (7-17) mg/dL Creatinine 0.61 L (0.7-1.0) mg/dL Estim Creat Clear Calc Not Reportable Estimated GFR > 60 (59 - ) Glucose 115 H (65-110) mg/dL Calcium 9.5 (8.4-10.2) mg/dL Total Bilirubin 0.4 (0.2-1.3) mg/dL AST 108 H (14-36) U/L ALT 110 H (6-35) U/L Alkaline Phosphatase 97 (38-126) U/L Total Protein 8.0 (6.3-8.2) g/dL Albumin 4.4 (3.5-5.1) g/dL Beta HCG, Quant 39941.00 mIU/ML Urine Color Dark yellow (Yellow) Urine Appearance Clear (Clear) Urine pH 5.0 (5.0-9.0) Ur Specific [place] 1.027 (1.001-1.035) Urine Protein Negative (Negative) mg/dL Urine Glucose (UA) Negative (Negative) mg/dL Urine Ketones Trace H (Negative) mg/dL Ur Blood (Man) 3+ H (Negative) Urine Nitrate Negative (Negative) Urine Bilirubin Negative (Negative) Urine Urobilinogen 0.2 (<2.0) mg/dL Leukocyte Esterase Rfl Negative (Negative) MASON/UL Urine RBC >100 H (0-2) /hpf Urine WBC 0-5 (0-3) /hpf Ur Squamous Epith Cells None seen (Few) /hpf Urine Bacteria None seen /hpf Urine Casts 0-2 Influenza A (RT-PCR) Negative (Negative) Influenza B (RT-PCR) Negative (Negative) RSV (RT-PCR) Negative (Negative) SARS-CoV-2 RNA (RT-PCR) Negative (Negative) Blood Type A Positive Antibody Screen Negative Screen Pending Baby's Blood Type Pending Baby's PAM Pending Doses of RhIg Required Pending Imaging Data Attestation: I personally reviewed and interpreted this imaging study as follows: Radiologist's impression: STAT RAD US OB: No gestational sac. Consider early bipolar failed versus nonvisualized ectopic. Recommend close follow-up. Unremarkable ovaries. No acute findings seen. Discharge Plan Discharge Clinical Impression: Spontaneous Upper respiratory infection Qualifiers: URI type: unspecified URI Qualified Code(s): J06.9 - Acute upper respiratory infection, unspecified Patient Disposition: Home Condition: Stable Instructions: Antibiotic Form, Miscarriage (ED), Abnormal (Dysfunctional) Uterine Bleeding (ED), Upper Respiratory Infection (ED) Additional Instructions: Obtain repeat hormone level on Friday at our outpatient lab. Take order sheet with you. Follow-up closely with OBGYN for further evaluation. Contact Dr. Allen's office on Friday morning to make follow-up appointment. Continue to monitor bleeding. Continue Tylenol as needed for pain. Return to the ED if you experience worsening or severe pain or bleeding, saturating through greater than 1 pad per hour, feeling very dizzy or lightheaded, passing out, unable to keep down food or drink, or any other symptoms of concern. Patient Language: Andorran Prescriptions: No Action prenat.vits,gary,[id number] Tablet 1 tablet PO DAILY Other Ambulatory Orders: Beta HCG Quantitative (Routine) Timeframe: [id number] Location: Determined by Patient Ordered By: Leny Michaud Follow-up/Referrals: Vinny Allen MD [Physician] - (OBGYN) PHYSICIAN,ENTRY TABLE OPERATOR [Primary Care Provider] - Time of Disposition: 02:43
[2025-04-29 23:49] LABS: Basophils Percent Auto 0.3 % (0.2-1.2); Eosinophils Percent Auto 0.6 % (0-4.4); Hematocrit 42.9 % (37.0-47.0); Hemoglobin 14.2 g/dL (12.0-15.0); Immature Granulocyte Absolute 0.07 K/mm3 (0.00-0.031); Immature Granulocyte Percent A 1.1 % (0-0.5); Lymphocytes Absolute Auto 1.06 K/mm3 (0.9-3.2); Lymphocytes Percent Auto 16.1 % (18.3-44.2); Mean Corpuscular HGB Conc 33.1 g/dl (32-36); Mean Corpuscular Hemoglobin 29.1 pg (26-34); Mean Corpuscular Volume 87.9 fl (80-100); Mean Platelet Volume 10.2 fl (7.4-10.4); Monocytes Absolute Auto 0.5 K/mm3 (0.1-0.6); Monocytes Percent Auto 6.8 % (2.6-8.5); Neutrophils Absolute Auto 4.9 K/mm3 (1.3-6.7); Neutrophils Percent Auto 75.1 % (45.5-73.1); Platelet Count Result 295 k/mm3 (150-375); Red Blood Count 4.88 M/mm3 (4.2-5.4); Red Cell Distribution Width 13.2 % (11.5-14.5); White Blood Count 6.6 K/mm3 (4.5-10.0)
[2025-04-29 23:56] LABS: Alanine Aminotransferase 110 U/L (6-35); Albumin Level 4.4 g/dL (3.5-5.1); Alkaline Phosphatase 97 U/L (38-126); Anion Gap 11 mmol/L (4-12); Aspartate Amino Transferase 108 U/L (14-36); Bilirubin,Total 0.4 mg/dL (0.2-1.3); Blood Urea Nitrogen 9 mg/dL (7-17); Calcium 9.5 mg/dL (8.4-10.2); Carbon Dioxide 19 mmol/L (22-30); Chloride 105 mmol/L (98-107); Estimated Glomerular Filt Rate > 60; Glucose 115 mg/dL (65-110); Potassium 3.7 mmol/L (3.4-5.0); Sodium 135 mmol/L (137-145)
[2025-04-29 23:57] LABS: INR 0.9; Prothrombin Time 12.7 Seconds (11.1-14.7)
[2025-04-30 00:26] LABS: Influenza A QL RT-PCR Negative (Negative); Influenza B QL RT-PCR Negative (Negative); RSV RNA, RT-PCR Negative (Negative); SARS-CoV-2 RNA PCR Negative (Negative)
[2025-04-30 01:28] LABS: Add Urine Microscopic? YES; Appearance Urine Clear (Clear); Bacteria Urine None Seen /hpf; Bilirubin Urine Negative (Negative); Blood Urine 3+ (Negative); Color Urine Dark Yellow (Yellow); Glucose Urine UA Negative (Negative); Ketones Urine Trace mg/dL (Negative); Leukocyte Esterase Ur Negative LEU/UL (Negative); Nitrate Urine Negative (Negative); Non Pathogenic Casts 0-2; Protein Urine Negative (Negative); RBC Urine >100 /hpf (0-2); Specific Grav Ur 1.027 (1.001-1.035); Squamous Epithelial Cell Urine None Seen /hpf (Few); Urobilinogen Urine 0.2 mg/dL (<2.0); WBC Urine 0-5 /hpf (0-3)
--- NOTE | 2025-04-30 01:31 | PC.NURSE ---
Pt reports white discharge with small amount of clots when providing urine sample.
[2025-04-30 02:00] VITALS: BP 123/78; PULSE 100; RESP 22; O2SAT 98
[2025-04-30 03:04] VITALS: BP 136/60; PULSE 87; RESP 18; TEMP 37.2; O2SAT 98
== END 2025-04-30 03:04 | disposition home or self-care (01) ==
PROVIDERS: Emergency Provider Physician Assistant
DX: O03.9 Complete or unspecified spontaneous abortion without complication (principal); J06.9 Acute upper respiratory infection, unspecified; Z20.822 Contact with and (suspected) exposure to COVID-19
CPT/HCPCS: 36415; 76801; 80053; 81001; 84702; 85025; 85461; 85610; 85730; 86850; 86900; 86901; 87637; 96361; 96374; 96375; 99284; A9270; J2270; J2405; J7030